=== PATIENT | female | born 1990 | race Caucasian/White ===

== ENCOUNTER 2019-02-01 09:36 | Outpatient (REF) | payer BC, SELFPAY ==
--- NOTE | 2019-02-01 09:20 | PAPFT_PTH ---
PATIENT: Sara Carreon LOC: [facility] U#:[id number] AGE/SX: 28/F ROOM: RE02/01/[address]: Pietro Khan MD : 1990 BED: DIS: 02/01/2019 SPEC #: [id number] RECD: 02/01/19 13:01 STATUS: ELIAN REPatrizia #: [id number] SEGUNDO: 02/01/19 09:[address]: Pietro Khan DEPT: [facility] Cytology RECD BY: Niki Garcia ENTERED: 02/01/19 13:02 SP TYPE: PAPFT JUNE DR: Liset Ramirez, DO Tissues: 1 - CX/ENDOCX FOR PAP SMEARS Procedures: PAP THIN PREP/UVM Screening HPV DNA PROBE Comments: [id number]
== END 2019-02-01 09:56 ==
LOC: LBN 09:36
PROVIDERS: PCP Student in an Organized Health Care Education/Training Program; Visit Provider Obstetrics & Gynecology
DX: Z12.4 Encounter for screening for malignant neoplasm of cervix (principal); Z11.51 Encounter for screening for human papillomavirus (HPV)
CPT/HCPCS: 88142; 87624

== ENCOUNTER 2019-03-08 13:29 | Outpatient (REF) | payer BC, SELFPAY ==
--- NOTE | 2019-03-08 11:40 | ENDO_PTH ---
PATIENT: Sara Carreon LOC: [facility] U#:[id number] AGE/SX: 28/F ROOM: RE03/08/[address]: Pietro Khan MD : 1990 BED: DIS: 03/08/2019 SPEC #: [id number] RECD: 03/08/19 18:10 STATUS: ELIAN REQ #: [id number] SEGUNDO: 03/08/19 11:[address]: Pietro Khan DEPT: Surgical Specimen RECD BY: Niki Garcia ENTERED: 03/08/19 18:11 SP TYPE: Endo OTHR DR: Liset Ramirez DO Tissues: 1 - ENDOCERVICAL BX/CURRETTE 2 - CERVICAL BIOPSY Procedures: GROSS AND MICRO LEVEL 4 Comments: [id number]
== END 2019-03-08 13:49 ==
LOC: LBN 13:29
PROVIDERS: PCP Student in an Organized Health Care Education/Training Program; Visit Provider Obstetrics & Gynecology
DX: N72 Inflammatory disease of cervix uteri (principal); N88.8 Other specified noninflammatory disorders of cervix uteri; R87.612 Low grade squamous intraepithelial lesion on cytologic smear of cervix (LGSIL); R87.810 Cervical high risk human papillomavirus (HPV) DNA test positive
CPT/HCPCS: 88305

== ENCOUNTER 2020-03-06 04:15 | Outpatient (CLI) | payer OTHER, SELFPAY ==
--- NOTE | 2020-03-06 06:15 | DI.RAD_ITS ---
EXAM: XR SCOLIOSIS T-L SPINE CLINICAL HISTORY: Evaluate curvature;THORACIC PAIN WITH FLEXION,T1,2,3 CURVATURE, ASYMMETRY,. TECHNIQUE: 2D digital imaging was performed. COMPARISON: No exams were available for comparison FINDINGS: BONES: No acute fracture is present. No bony destructive lesion is seen. Alignment of the thoracolumb ar spine is within normal limits. No significant curvature of the spine is noted. The vertebral bod ies have a normal appearance. JOINTS: No dislocation present. The disc spaces are well maintained. SOFT TISSUE: Normal. IMPRESSION: Unremarkable radiographs of the thoracolumbar spine. DATA REPOSITORY: RADIATION DOSE DELIVERED:
--- NOTE | 2020-03-06 06:15 | DI.RAD_ITS ---
EXAM: XR CERVICAL SP COMP W FLEX/EXT CLINICAL HISTORY: Eval prominence @ C6-C7, r/o bony path,NECK PAIN,M54.2. TECHNIQUE: 2D digital imaging was performed. COMPARISON: No exams were available for comparison FINDINGS: BONES: No fracture or destructive lesion. Vertebral bodies are unremarkable. DISKS: Intervertebral disc spaces are maintained. ALIGNMENT: There is straightening of the normal cervical lordosis which may be due to patient positio sole or muscle spasm. No subluxation is seen with flexion or extension. The odontoid and atlantoaxi al articulations are normal. No neural foraminal encroachment is seen. SOFT TISSUE: Normal. The lung apices are clear. IMPRESSION: Unremarkable radiographs of the cervical spine. DATA REPOSITORY: RADIATION DOSE DELIVERED:
== END 2020-03-06 04:35 ==
PROVIDERS: PCP Student in an Organized Health Care Education/Training Program; Visit Provider Student in an Organized Health Care Education/Training Program
DX: M54.2 Cervicalgia (principal); M54.9 Dorsalgia, unspecified
CPT/HCPCS: 72081; 72052

== ENCOUNTER 2020-06-04 01:18 | Outpatient (CLI) | payer OTHER, SELFPAY ==
--- NOTE | 2020-06-04 09:33 | DI.MRI_ITS ---
EXAM: MR BRAIN WO CLINICAL HISTORY: paresthesias,r20.2, ? multiple sclerosis TECHNIQUE: Multiplanar multisequence MRI of the brain was performed. Both noninfused and contrast i nfused sequences were performed. IV Contrast injected was cc Dotarem. COMPARISON: No exams were available for comparison FINDINGS: CEREBRAL PARENCHYMA: No evidence of intracranial hemorrhage, mass effect nor shift of midline structu re. No extraaxial fluid collections. Ventricles are not enlarged nor shifted. There is no evidence of ce rebellar tonsillar ectopia. There is no significant focal signal abnormality in the cerebellar hemispheres nor within the luz marina, m idbrain, and thalami. In the left periventricular white matter there is a solitary faint 5 x 4 millimeter focus of some mil d signal abnormality seen on T2 and FLAIR imaging and another similar finding is seen in the right pe riventricular white matter. Both of these are not associated with abnormal signal in the fusion imag ing. There is no associated hemorrhage or surrounding vasogenic edema. PITUITARY GLAND: No mass nor parasellar abnormality. No obvious abnormality in the cavernous sinuses. FLOW VOIDS: The expected flow void are noted. No evidence of obvious aneurysm nor obvious vascular ma lformation. PARANASAL SINUSES: The visualized paranasal sinuses appear unremarkable. ORBITS: No obvious abnormal findings. IMPRESSION: 1. Very subtle bilateral periventricular white matter findings as described above. Cannot exclude po ssibility that these may represent small plaques, given the history here, this despite the fact that there is no abnormal high signal at these levels on diffusion imaging. 2. Recommend follow-up MRI scan in a few months time. Earlier if clinically indicated. DATA REPOSITORY:
== END 2020-06-04 01:19 ==
LOC: DI 01:19
PROVIDERS: PCP Student in an Organized Health Care Education/Training Program; Visit Provider Psychiatry & Neurology Neurology
DX: R20.2 Paresthesia of skin (principal); R90.82 White matter disease, unspecified
CPT/HCPCS: 70551

== ENCOUNTER 2020-08-07 02:13 | Outpatient (CLI) | payer OTHER, SELFPAY ==
[2020-08-07 16:45] LABS: Anion Gap 9.7 mmol/L (3-11); BUN 18 mg/dL (7-18); CO2 25.3 mmol/L (21.0-32.0); CREATININE 0.8 mg/dL (0.55-1.02); Calcium 9.3 mg/dL (8.5-10.1); Chloride 106 mmol/L (98-107); Glucose 86 mg/dL (74-106); Potassium 3.9 mmol/L (3.5-5.1); Sodium 141 mmol/L (136-145)
== END 2020-08-07 02:14 | disposition home or self-care (01) ==
LOC: LBO 02:13
PROVIDERS: PCP Student in an Organized Health Care Education/Training Program; Visit Provider Student in an Organized Health Care Education/Training Program
DX: R51.9 Headache, unspecified (principal); E55.9 Vitamin D deficiency, unspecified; R93.7 Abnormal findings on diagnostic imaging of other parts of musculoskeletal system; R20.2 Paresthesia of skin; R10.13 Epigastric pain; R79.89 Other specified abnormal findings of blood chemistry; R20.0 Anesthesia of skin; Z86.39 Personal history of other endocrine, nutritional and metabolic disease
CPT/HCPCS: 36415; 80048; 82306; 83735

== ENCOUNTER 2020-08-10 10:08 | Outpatient (CLI) | payer OTHER, SELFPAY ==
[2020-08-11 12:48] LABS: COVID-19 RT-PCR UVMMC Result Negative (Negative)
== END 2020-08-10 10:09 | disposition home or self-care (01) ==
LOC: LBO 10:08
PROVIDERS: PCP Student in an Organized Health Care Education/Training Program; Visit Provider Student in an Organized Health Care Education/Training Program
DX: Z20.822 Contact with and (suspected) exposure to COVID-19 (principal); R19.7 Diarrhea, unspecified
CPT/HCPCS: U0003

== ENCOUNTER → 2020-12-08 03:38 | Outpatient (CLI) | payer OTHER, SELFPAY ==
--- NOTE | 2020-12-08 09:00 | DI.MRI_ITS ---
Exam(s) MR BRAIN WO EXAM: MR BRAIN WO CLINICAL HISTORY: Eval for demyelination (FU to 05/2020 MRI); R55 SYNCOPE COLLAPSE R20.0 R20.2 TECHNIQUE: Multiplanar multisequence MRI of the brain was performed. COMPARISON: MR MR BRAIN WO from 06/04/2020 FINDINGS: VENTRICLES AND EXTRA AXIAL SPACES: Normal in size and morphology for the patient's age. MIDLINE SHIFT: None. CEREBRAL PARENCHYMA: No focus of restricted diffusion to suggest acute infarct. There are 2 nearly s ymmetric small high signal foci on T2 FLAIR images in the periventricular white matter adjacent to t he lateral ventricles. This is unchanged from the previous exam. There is no associated hemorrhage or restricted diffusion. HEMORRHAGE: None. BRAINSTEM/CEREBELLUM: Normal. VISUALIZED PARANASAL SINUSES/MASTOIDS:Clear. [place]KA[place] OF HORN: Normal flow void. PITUITARY GLAND: Unremarkable. IMPRESSION: Stable high signal foci in the periventricular white matter. No new abnormalities. DATA REPOSITORY:
== END ==
PROVIDERS: PCP Student in an Organized Health Care Education/Training Program; Visit Provider Student in an Organized Health Care Education/Training Program
DX: R20.0 Anesthesia of skin (principal); R20.2 Paresthesia of skin; R55 Syncope and collapse; Z82.3 Family history of stroke; R90.82 White matter disease, unspecified
CPT/HCPCS: 70551

== ENCOUNTER 2021-06-03 16:45 | Outpatient (REF) | payer OTHER, SELFPAY ==
[2021-06-03 19:04] LABS: MCH 30.9 pg (27.0-33.0); MCHC 33.3 % (32.0-36.0); MCV 92.6 fL (80-95); MPV 10.1 fL (8.0-11.0); Platelet Count 298 10^3/uL (130-400); RBC 4.21 10^6/uL (3.93-5.22); RDW 11.7 % (11.7-14.6); RDW-SD 39.7 fL; WBC 11.69 10^3/uL (4.4-10.8)
[2021-06-03 19:46] LABS: Vitamin D 25 Total 22.3 ng/mL (30-100)
[2021-06-03 19:48] LABS: Anion Gap 10.9 mmol/L (3-11); BUN 17 mg/dL (7-18); CO2 26.1 mmol/L (21.0-32.0); CREATININE 0.7 mg/dL (0.55-1.02); Calcium 9.4 mg/dL (8.5-10.1); Chloride 103 mmol/L (98-107); Glucose 84 mg/dL (74-106); Potassium 3.7 mmol/L (3.5-5.1); Sodium 140 mmol/L (136-145); Vitamin B12 540 pg/mL (193-986)
[2021-06-03 20:17] LABS: Folate > 20.0 ng/mL (8.6-20.0)
== END 2021-06-03 16:46 | disposition home or self-care (01) ==
LOC: LBN 16:45
PROVIDERS: PCP Student in an Organized Health Care Education/Training Program; Visit Provider Student in an Organized Health Care Education/Training Program
DX: R20.0 Anesthesia of skin (principal); R20.2 Paresthesia of skin; R53.83 Other fatigue; E46 Unspecified protein-calorie malnutrition; E86.0 Dehydration; G43.009 Migraine without aura, not intractable, without status migrainosus; R79.89 Other specified abnormal findings of blood chemistry; R51.9 Headache, unspecified
CPT/HCPCS: 80048; 82306; 85027; 82607; 82746

== ENCOUNTER 2021-06-28 16:15 | Outpatient (REF) | payer OTHER, SELFPAY ==
--- NOTE | 2021-06-28 15:45 | PAPFT_PTH ---
PATIENT: Sara Carreon LOC: [facility] U#:[id number] AGE/SX: 30/F ROOM: RE06/28/[address]: Trini Green NP : 1990 BED: DIS: 06/28/2021 SPEC #: [id number] RECD: 06/28/21 18:17 STATUS: ELIAN REQ #: [id number] SEGUNDO: 06/28/21 15:[address]: Trini Green NP DEPT: [facility] Cytology RECD BY: Niki Garcia ENTERED: 06/28/21 18:17 SP TYPE: PAPFT OTHR DR: Liset Ramirez, DO Tissues: 1 - CX/ENDOCX FOR PAP SMEARS Procedures: PAP THIN PREP/UVM Screening HPV DNA PROBE Comments: [id number]
== END 2021-06-28 16:16 | disposition home or self-care (01) ==
LOC: LBN 16:15
PROVIDERS: PCP Student in an Organized Health Care Education/Training Program; Visit Provider Nurse Practitioner Women's Health
DX: Z12.4 Encounter for screening for malignant neoplasm of cervix (principal); Z11.51 Encounter for screening for human papillomavirus (HPV)
CPT/HCPCS: 88142; 87624

== ENCOUNTER 2021-08-12 02:14 | Outpatient (CLI) | payer OTHER, SELFPAY ==
--- NOTE | 2021-08-12 07:00 | DI.US_ITS ---
Exam(s) US BREAST RT COMPLETE MG MAMMO DIAGNOSTIC BI EXAM: MG MAMMO DIAGNOSTIC BI CLINICAL HISTORY: black/green nipple discharge of r breast,N64.52 TECHNIQUE: Mammograms were interpreted according to the usual protocol including computer analysis w [employer]-Bio CAD system, tomosynthesis and C-view imaging. COMPARISON: FINDINGS: Bilateral mammogram and ultrasound of the right breast are interpreted in conjunction. No prior imag es available for comparison, this examination is a baseline study. The breasts are heterogeneously dense. No dominant mass or clumped microcalcification identified in either breast. Breast ultrasound was also performed on the right breast due to reported history of n ipple discharge. Breast ultrasound of the whole breast is unremarkable with no suspicious finding id entified. A 3 millimeter cyst is noted in the 12 o'clock position 2 cm from the nipple which is a si mple cyst. A group of micro cysts is also seen in the 11 o'clock position about 3 cm from the nipple . IMPRESSION: No specific evidence of malignancy at this time. Routine screening examinations recommended beginnin g age 40 unless there is breast symptomatology in the intervening period. BI-RADS Category 1 - Negative Breast Density - Category C - Heterogeneously dense
--- NOTE | 2021-08-12 10:02 | DI.MAMMO_ITS ---
Exam(s) US BREAST RT COMPLETE MG MAMMO DIAGNOSTIC BI EXAM: MG MAMMO DIAGNOSTIC BI CLINICAL HISTORY: black/green nipple discharge of r breast,N64.52 TECHNIQUE: Mammograms were interpreted according to the usual protocol including computer analysis w [employer] CAD system, tomosynthesis and C-view imaging. COMPARISON: FINDINGS: Bilateral mammogram and ultrasound of the right breast are interpreted in conjunction. No prior imag es available for comparison, this examination is a baseline study. The breasts are heterogeneously dense. No dominant mass or clumped microcalcification identified in either breast. Breast ultrasound was also performed on the right breast due to reported history of n ipple discharge. Breast ultrasound of the whole breast is unremarkable with no suspicious finding id entified. A 3 millimeter cyst is noted in the 12 o'clock position 2 cm from the nipple which is a si mple cyst. A group of micro cysts is also seen in the 11 o'clock position about 3 cm from the nipple . IMPRESSION: No specific evidence of malignancy at this time. Routine screening examinations recommended beginnin g age 40 unless there is breast symptomatology in the intervening period. BI-RADS Category 1 - Negative Breast Density - Category C - Heterogeneously dense
== END 2021-08-12 02:34 ==
LOC: DI 02:15
PROVIDERS: PCP Student in an Organized Health Care Education/Training Program; Visit Provider Nurse Practitioner Women's Health
DX: N64.52 Nipple discharge (principal); N60.11 Diffuse cystic mastopathy of right breast
CPT/HCPCS: 76642; 77062; 77066; G0279

== ENCOUNTER 2022-04-22 02:31 | Outpatient (CLI) | payer OTHER, SELFPAY ==
[2022-04-22 14:28] LABS: Absolute Basophil Count 0.06 10^3/uL (0.0-0.2); Absolute Eosinophil Count 0.19 10^3/uL (0.0-0.7); Absolute Monocyte Count 0.89 10^3/uL (0.1-0.8); Basophils % 0.5; Eosinophils % 1.6; HCT 36.8 % (36.0-46.0); HGB 12.4 g/dL (11.2-15.7); Immature Grans % 0.8; Lymphocytes % 24.7; MCH 30.9 pg (27.0-33.0); MCHC 33.7 % (32.0-36.0); MCV 92 fL (80-95); MPV 9.6 fL (8.0-11.0); Monocytes % 7.3; Neutrophils % 65.1; Platelet Count 260 10^3/uL (130-400); RBC 4.01 10^6/uL (3.93-5.22); RDW 11.7 % (11.7-14.6); RDW-SD 39.4 fL; WBC 12.13 10^3/uL (4.4-10.8)
[2022-04-22 15:17] LABS: HCG Quant, Pregnancy 53145 mIU/mL (1-3)
[2022-04-22 15:39] LABS: Vitamin D 25 Total 18.1 ng/mL (30-100)
[2022-04-22 17:25] LABS: *AMPHETAMINES SCREEN URINE Negative (Negative); *BARBITURATES SCREEN URINE Negative (Negative); *BENZODIAZEPINES SCREEN URINE Negative (Negative); Cannabinoids THC Negative (Negative); Cocaine Screen,Urine Negative (Negative); METHADONE URINE SCREEN Negative (Negative); OPIATES URINE SCREEN Negative (Negative)
[2022-04-22 17:26] LABS: Tricyclic Antidepressants Negative (Negative)
[2022-04-23 15:24] LABS: Syphilis IgG w/Reflex Nonreactive (Nonreactive)
[2022-04-24 13:21] LABS: HIV-1/2 Ag & Ab Screen Negative (Negative)
[2022-04-25 09:11] LABS: Hepatitis B Surface Ag Negative (Negative)
[2022-04-25 09:24] LABS: Hepatitis C Ab w Rflx HCV PCR Negative (Negative)
[2022-04-25 11:40] LABS: Varicella IgG Antibody Positive (See Note)
[2022-04-25 11:42] LABS: Rubella IgG Ab (UVM) Positive (See Note)
[2022-04-30 16:21] LABS: Buprenorphine Negative ng/mL (Cutoff: 5.0); Norbuprenorphine Negative ng/mL (Cutoff: 2.5)
== END 2022-04-22 02:32 | disposition home or self-care (01) ==
LOC: LBO 02:31
PROVIDERS: PCP Student in an Organized Health Care Education/Training Program; Visit Provider Advanced Practice Midwife
DX: Z34.91 Encounter for supervision of normal pregnancy, unspecified, first trimester (principal); E55.9 Vitamin D deficiency, unspecified; Z3A.12 12 weeks gestation of pregnancy
CPT/HCPCS: 36415; 80307; 80348; 82306; 86787; 86803; 86850; 86900; 86901; 87340; 87389; 84702; 85025; 86762; 86780; 87086

== ENCOUNTER 2022-05-20 01:25 | Outpatient (CLI) | payer OTHER, SELFPAY ==
[2022-05-20 16:33] LABS: Panorama Kit Sent via Fed Ex
[2022-05-24 16:21] LABS: AFP 55.5 ng/mL; Calculated age at EDD 34 years; Cigarette smoking status non-Smoker; GA used in risk estimate Scan estimate; IVF Pregnancy No; Initial or repeat testing Initial testing; Insulin dependent diabetes No; Maternal Weight 157 lbs; Number of Fetuses 1; Prev Pregnancy w/NTD No; RECOMMENDED FOLLOW UP None.; Results Summary Normal risk
== END 2022-05-20 01:26 | disposition home or self-care (01) ==
LOC: LBO 01:25
PROVIDERS: PCP Student in an Organized Health Care Education/Training Program; Visit Provider Advanced Practice Midwife
DX: Z34.92 Encounter for supervision of normal pregnancy, unspecified, second trimester (principal); Z36.89 Encounter for other specified antenatal screening; Z3A.16 16 weeks gestation of pregnancy
CPT/HCPCS: 36415; 82105

== ENCOUNTER 2022-05-20 17:38 | Outpatient (REF) | payer OTHER, SELFPAY ==
[2022-05-23 12:28] LABS: Chlamydia Result Negative (Negative); GC Result Negative (Negative)
== END 2022-05-20 17:39 | disposition home or self-care (01) ==
LOC: LBN 17:38
PROVIDERS: PCP Student in an Organized Health Care Education/Training Program; Visit Provider Advanced Practice Midwife
DX: Z34.92 Encounter for supervision of normal pregnancy, unspecified, second trimester (principal); Z3A.16 16 weeks gestation of pregnancy
CPT/HCPCS: 87491; 87591

== ENCOUNTER 2022-06-22 15:08 | Outpatient (CLI) | payer OTHER, SELFPAY ==
[2022-06-22 15:20] LABS: FREE T4 0.97 ng/dL (0.76-1.46); TSH 0.72 uIU/mL (0.36-3.74)
== END 2022-06-22 15:09 | disposition home or self-care (01) ==
LOC: LBO 15:20
PROVIDERS: PCP Student in an Organized Health Care Education/Training Program; Visit Provider Advanced Practice Midwife
DX: R00.2 Palpitations (principal); R07.89 Other chest pain
CPT/HCPCS: 36415; 84439; 84443

== ENCOUNTER 2022-08-17 02:31 | Outpatient (CLI) | payer OTHER, SELFPAY ==
[2022-08-17 15:11] LABS: HCT 32.2 % (36.0-46.0); HGB 10.9 g/dL (11.2-15.7); MCH 30.7 pg (27.0-33.0); MCHC 33.9 % (32.0-36.0); MCV 91 fL (80-95); Platelet Count 230 10^3/uL (130-400); RBC 3.55 10^6/uL (3.93-5.22); RDW-SD 42.7 fL; WBC 15.88 10^3/uL (4.4-10.8)
[2022-08-17 15:19] LABS: Glucose,1 Hr (Glucola) 192 mg/dL (80-140)
== END 2022-08-17 02:32 | disposition home or self-care (01) ==
LOC: LBO 02:31
PROVIDERS: PCP Student in an Organized Health Care Education/Training Program; Visit Provider Advanced Practice Midwife
DX: Z34.93 Encounter for supervision of normal pregnancy, unspecified, third trimester (principal); Z3A.29 29 weeks gestation of pregnancy
CPT/HCPCS: 36415; 82950; 85027

== ENCOUNTER 2022-08-30 02:46 | Outpatient (CLI) | payer OTHER, SELFPAY ==
[2022-08-30 10:37] LABS: Glucose 1 Hour 193 mg/dL
[2022-08-30 12:16] LABS: Glucose 3 Hour 157 mg/dL
== END 2022-08-30 02:47 | disposition home or self-care (01) ==
LOC: LBO 02:46
PROVIDERS: PCP Student in an Organized Health Care Education/Training Program; Visit Provider Advanced Practice Midwife
DX: Z34.93 Encounter for supervision of normal pregnancy, unspecified, third trimester (principal); Z3A.31 31 weeks gestation of pregnancy
CPT/HCPCS: 36415; 82951

== ENCOUNTER 2022-09-13 10:47 | Outpatient (CLI) | payer OTHER, SELFPAY ==
--- NOTE | 2022-09-13 10:00 | NS.NUTBLAN_ITS ---
Met with Natacha at [facility]. ZITA 11/01/22 and diagnosed with GDM but unable to prick her finger. Reviewed Dexcom 7 CGM option- she is agreeable however her current phone is not compatible. Has another phone at home. Took Dexcom G7 sample home with her. Left message 09/14 and 09/15 to see if she had any questions. Did not call back. Will be to [facility] next week. Will be able to meet with her then as well.
== END 2022-09-13 10:48 | disposition home or self-care (01) ==
LOC: DS 09-15 10:54
PROVIDERS: PCP Student in an Organized Health Care Education/Training Program; Visit Provider Dietitian, Registered
DX: O24.410 Gestational diabetes mellitus in pregnancy, diet controlled (principal); Z3A.30 30 weeks gestation of pregnancy; Z71.3 Dietary counseling and surveillance
CPT/HCPCS: 97802

== ENCOUNTER 2022-10-03 02:55 | Outpatient (CLI) | payer OTHER, SELFPAY ==
--- NOTE | 2022-10-03 06:30 | DI.US_ITS ---
Exam(s) US OB MINE WEIGHT EXAM: US OB MINE WEIGHT CLINICAL HISTORY: 36 wk growth, gestational diabetes, 024.419. TECHNIQUE: Transabdominal obstetrical ultrasound performed. COMPARISON: US US OB 2-3 TRIMESTER from 06/22/2022 FINDINGS:: Number of fetuses: One. position: Vertex. Placental location: Anterior peer no evidence of previa. BIOMETRIC DATA: BPD: 87mm = 35+ 0 weeks HC: 312mm = 35+ 0 weeks AC: 306mm = 34+4 weeks FL: 67 mm = 34+2 weeks EFW: 2464 Gms = 16% Composite Age: 34+5 weeks EDC: 09 November 2022 Heart Rate: 152BPM Amniotic fluid index: 20.7 cm. Amount of fluid is visually within normal limits. IMPRESSION: size measuring slightly below the normal range. weight low normal range.. DATA REPOSITORY:
== END 2022-10-03 03:15 ==
LOC: DI 02:55
PROVIDERS: PCP Student in an Organized Health Care Education/Training Program; Visit Provider Advanced Practice Midwife
DX: O24.410 Gestational diabetes mellitus in pregnancy, diet controlled (principal)
CPT/HCPCS: 76816

== ENCOUNTER 2022-10-10 16:27 | Outpatient (REF) | payer OTHER, SELFPAY ==
[2022-10-10 20:26] LABS: *AMPHETAMINES SCREEN URINE Negative (Negative); *BARBITURATES SCREEN URINE Negative (Negative); *BENZODIAZEPINES SCREEN URINE Negative (Negative); Cannabinoids THC Negative (Negative); Cocaine Screen,Urine Negative (Negative); METHADONE URINE SCREEN Negative (Negative); OPIATES URINE SCREEN Negative (Negative)
[2022-10-10 20:27] LABS: Tricyclic Antidepressants Negative (Negative)
[2022-10-17 04:54] LABS: Buprenorphine Negative ng/mL (Cutoff: 5.0)
== END 2022-10-10 16:28 | disposition home or self-care (01) ==
LOC: LBN 16:27
PROVIDERS: PCP Student in an Organized Health Care Education/Training Program; Visit Provider Advanced Practice Midwife
DX: Z34.90 Encounter for supervision of normal pregnancy, unspecified, unspecified trimester (principal)
CPT/HCPCS: 80307; 80348; 87081

== ENCOUNTER 2022-10-24 16:12 | Outpatient (CLI) | payer OTHER, SELFPAY ==
[2022-10-24 16:28] VITALS: BP 117/82; PULSE 87; TEMP 36.5
--- NOTE | 2022-10-24 17:19 | W.OBNST ---
Date of service: 10/24/22 Time of Service: 17:10 NST Evaluation Reason for NST Reasons for Nonstress Test: GDM-DIET CONTROLLED Gestational Age Gestational Age in Weeks and Days: 38 Weeks and 6Days Test and Monitor Explained Test/Monitor Explained: Test Explained, Monitor Explained and Patient Verbalized Understanding Vital Signs Blood Pressure: 117/82 Pulse: 87 Temperature: 97.7 F NST Information Date on Monitor: 10/24/22 Time on Monitor: 16:19 Date off Monitor: 10/24/22 Time off Monitor: 16:50 Total Time on Monitor: 31 NST Interventions: None and PO Hydration Contraction Frequency: 4-5 NST Evaluation Patient States Movement: Present FHR Baseline: 130 Variability: Moderate 6-25 bpm Accelerations: 15x15 Decelerations: None NST Results: Reactive Note Ultrasound Done: N/A. NST Note Note: NST done due to GDM with questionable BG control as CGM has been recording spikes in BG's but overall good BG level. Patient admits that CGM may not be recording accurately as she did a BG at work that was 40 points different than what CGM was recording. Due to this and that she is 39 week this week, induction of labor was suggested and she agrees to IOL on Monday. VE done FT/80/-2 slightly posterior. She will call on Monday morning to verify that [facility] can accept her for induction. I encouraged more strict control of diet between now and Monday and she verbalizes understanding. NST today is reactive and reassuring. ARIK NST Reviewed and Verified by: Antionette Yepez
[2022-10-24 17:28] VITALS: BP 117/82; PULSE 87; TEMP 36.5
== END 2022-10-24 17:16 | disposition home or self-care (01) ==
LOC: BCD 16:14 → OBS 16:27
PROVIDERS: PCP Student in an Organized Health Care Education/Training Program; Visit Provider Advanced Practice Midwife
DX: O24.410 Gestational diabetes mellitus in pregnancy, diet controlled (principal); Z3A.38 38 weeks gestation of pregnancy
CPT/HCPCS: 59025

== ENCOUNTER 2022-10-29 09:07 | Inpatient (IN) | payer OTHER, SELFPAY ==
[2022-10-29] VITALS (48 sets, daily range): BP systolic 115–128; BP diastolic 69–81; PULSE 0–107; RESP 16–18; TEMP 36.4–36.6; O2SAT 99
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
[2022-10-29 11:25] LABS: HCT 35.6 % (36.0-46.0); HGB 12.4 g/dL (11.2-15.7); MCH 31.3 pg (27.0-33.0); MCHC 34.8 % (32.0-36.0); MCV 90 fL (80-95); MPV 10.1 fL (8.0-11.0); Platelet Count 225 10^3/uL (130-400); RBC 3.96 10^6/uL (3.93-5.22); RDW 13.6 % (11.7-14.6); RDW-SD 44.9 fL; WBC 11.72 10^3/uL (4.4-10.8)
[2022-10-29 11:39] LABS: Hemoglobin A1C 5.1 % (<5.7)
[2022-10-29 11:40] LABS: ALT 14 U/L (14-59); AST 14 U/L (15-37); Albumin 2.4 g/dL (3.4-5.0); Alkaline Phosphatase 120 U/L (46-116); BUN 14 mg/dL (7-18); Bilirubin, Total 0.3 mg/dL (0.2-1.0); CREATININE 0.6 mg/dL (0.55-1.02); Calcium 8.8 mg/dL (8.5-10.1); Chloride 103 mmol/L (98-107); Estimated GFR 121.47 (mL/min/1.73m2); Glucose 76 mg/dL (74-106); Potassium 3.9 mmol/L (3.5-5.1); Sodium 134 mmol/L (136-145); Total Protein 6.1 g/dL (6.4-8.2)
--- NOTE | 2022-10-29 11:44 | W.OBNST ---
Date of service: 10/29/22 Time of Service: 11:00 NST Evaluation Reason for NST Reasons for Nonstress Test: GDM-DIET CONTROLLED Gestational Age Gestational Age in Weeks and Days: 39 Weeks and 4Days Test and Monitor Explained Test/Monitor Explained: Test Explained, Monitor Explained and Patient Verbalized Understanding Vital Signs Blood Pressure: 118/81 Pulse: 107 Temperature: 97.9 F Urine Results Urine Protein: Negative Urine Ketones: Negative Urine Glucose: Negative Urine Blood: Negative NST Information Date on Monitor: 10/29/22 Time on Monitor: 09:15 Date off Monitor: 10/29/22 Time off Monitor: 09:55 Total Time on Monitor: 40 NST Interventions: Notify Provider Contraction Frequency: 4 NST Evaluation Patient States Movement: Present FHR Baseline: 145 Variability: Moderate 6-25 bpm Accelerations: 15x15 Decelerations: None NST Results: Reactive Note Ultrasound Done: N/A. NST Note Note: Natacha came in today for NST due to gestational diabetes. She has been monitoring blood sugar with a CGM an elevated post meal blood sugars have been detected. We discussed IOL today per consultation with Dr. Hayes and she would like to do that today. Admitted for ioL. NST Reviewed and Verified by: Antionette Blake
[2022-10-29] MEDS: Docusate Sodium 100 MG CAP PO (16:27)
--- NOTE | 2022-10-29 21:24 | W.PM.OBNL1 ---
Date of service: 10/29/22 Time of Service: 21:24 Informed Consent Informed Consent: Induction of Labor Pelvic Exam Comments: exam deferred as balloon remains in place. Contractions Monitor Mode: External Contraction Frequency(min): irregular Contraction Duration(sec): 50 Intensity: Mild Fetus A Monitor: External (US) Heart Rate Baseline: 135 Variability: Moderate (6-25 BPM) Categories: Category I FHR Rhythm: Regular Accelerations: 15 X 15 Decelerations: None Amniotic Membrane Status: Intact Assessment and Plan Assessment and plan (1) Encounter for planned induction of labor: Status: Acute Assessment and plan: Will start misoprostol PO for cervical ripening at this time. Anticipate Objective Abnormal lab results 10/29/22 10/29/22 Range/Units 10:55 10:55 WBC 11.72 H (4.4-10.8) 10^3/uL Hct 35.6 L (36.0-46.0) % Sodium 134 L (136-145) mmol/L AST 14 L (15-37) U/L Alkaline Phosphatase 120 H (46-116) U/L Total Protein 6.1 L (6.4-8.2) g/dL Albumin 2.4 L (3.4-5.0) g/dL Temp Pulse Resp BP Pulse Ox 97.5 F L 0 L 16 127/72 99 10/29/22 20:00 10/29/22 21:23 10/29/22 20:00 10/29/22 20:00 10/29/22 13:56 Laboratory Results WBC 11.72 10^3/uL (4.4-10.8) H 10/29/22 10:55 RBC 3.96 10^6/uL (3.93-5.22) 10/29/22 10:55 Hgb 12.4 g/dL (11.2-15.7) 10/29/22 10:55 Hct 35.6 % (36.0-46.0) L 10/29/22 10:55 MCV 90 fL (80-95) 10/29/22 10:55 MCH 31.3 pg (27.0-33.0) 10/29/22 10:55 MCHC 34.8 % (32.0-36.0) 10/29/22 10:55 RDW 13.6 % (11.7-14.6) 10/29/22 10:55 Plt Count 225 10^3/uL (130-400) 10/29/22 10:55 MPV 10.1 fL (8.0-11.0) 10/29/22 10:55 Sodium 134 mmol/L (136-145) L 10/29/22 10:55 Potassium 3.9 mmol/L (3.5-5.1) 10/29/22 10:55 Chloride 103 mmol/L (98-107) 10/29/22 10:55 Carbon Dioxide 21.0 mmol/L (21.0-32.0) 10/29/22 10:55 Anion Gap 10.0 mmol/L (3-11) 10/29/22 10:55 BUN 14 mg/dL (7-18) 10/29/22 10:55 Creatinine 0.6 mg/dL (0.55-1.02) 10/29/22 10:55 Est GFR (CKD-EPI 2020) 121.47 (mL/min/1.73m2) 10/29/22 10:55 Glucose 76 mg/dL (74-106) 10/29/22 10:55 Hemoglobin A1c 5.1 % (<5.7) 10/29/22 10:55 Calcium 8.8 mg/dL (8.5-10.1) 10/29/22 10:55 Total Bilirubin 0.3 mg/dL (0.2-1.0) 10/29/22 10:55 AST 14 U/L (15-37) L 10/29/22 10:55 ALT 14 U/L (14-59) 10/29/22 10:55 Alkaline Phosphatase 120 U/L (46-116) H 10/29/22 10:55 Total Protein 6.1 g/dL (6.4-8.2) L 10/29/22 10:55 Albumin 2.4 g/dL (3.4-5.0) L 10/29/22 10:55 Patient ABO/Rh A Positive 10/29/22 10:55 Antibody Screen NEGATIVE 10/29/22 10:55 Subjective Interval history since last seen: Natacha is experiencing mild contractions. She was offered misoprostol for cervical ripening and she wishes to proceed with that at this time. Results Hemoglobin/Hematocrit: Hgb 12.4 g/dL (11.2-15.7) 10/29/22 10:55 Hct 35.6 % (36.0-46.0) L 10/29/22 10:55 Abnormal Lab Findings: Abnormal Labs 10/29/22 10/29/22 10:55 10:55 WBC 11.72 H Hct 35.6 L Sodium 134 L AST 14 L Alkaline Phosphatase 120 H Total Protein 6.1 L Albumin 2.4 L
[2022-10-29] MEDS: miSOPROStol 25 MCG TAB PO (21:47)
[2022-10-30] VITALS (322 sets, daily range): BP systolic 100–158; BP diastolic 59–84; PULSE 0–134; RESP 16; TEMP 36.4–36.8; O2SAT 98–100; BMI 32.2
[2022-10-30] MEDS: miSOPROStol 25 MCG TAB PO ×2 (02:01→06:02)
--- NOTE | 2022-10-30 07:06 | W.PM.OBNL1 ---
Date of service: 10/30/22 Time of Service: 07:06 Informed Consent Informed Consent: Induction of Labor Pelvic Exam Comments: Exam deferred Contractions Monitor Mode: External Contraction Frequency(min): every 3 min Contraction Duration(sec): 40-50 Intensity: Mild Fetus A Monitor: External (US) Heart Rate Baseline: 140 Variability: Moderate (6-25 BPM) Categories: Category I FHR Rhythm: Regular Accelerations: 15 X 15 Decelerations: None Assessment and Plan Assessment and plan (1) Encounter for planned induction of labor: Status: Acute Assessment and plan: Will increase misoprostol dose to 50 mcg PO every 4 hours. Natacha is planning epidural for pain. Ambulation and /or shower was encouraged. Care will be assumed by Maria De Jesus Ramirez CNM after 0800. (2) Gestational diabetes: Status: Acute Assessment and plan: Natacha has ordered breakfast and will assess blood sugar by CGM monitor one hour after breakfast Objective Abnormal lab results 10/29/22 10/29/22 Range/Units 10:55 10:55 WBC 11.72 H (4.4-10.8) 10^3/uL Hct 35.6 L (36.0-46.0) % Sodium 134 L (136-145) mmol/L AST 14 L (15-37) U/L Alkaline Phosphatase 120 H (46-116) U/L Total Protein 6.1 L (6.4-8.2) g/dL Albumin 2.4 L (3.4-5.0) g/dL Temp Pulse Resp BP Pulse Ox 97.7 F 74 16 105/67 99 10/30/22 06:03 10/30/22 07:03 10/29/22 20:00 10/30/22 06:03 10/29/22 13:56 Laboratory Results WBC 11.72 10^3/uL (4.4-10.8) H 10/29/22 10:55 RBC 3.96 10^6/uL (3.93-5.22) 10/29/22 10:55 Hgb 12.4 g/dL (11.2-15.7) 10/29/22 10:55 Hct 35.6 % (36.0-46.0) L 10/29/22 10:55 MCV 90 fL (80-95) 10/29/22 10:55 MCH 31.3 pg (27.0-33.0) 10/29/22 10:55 MCHC 34.8 % (32.0-36.0) 10/29/22 10:55 RDW 13.6 % (11.7-14.6) 10/29/22 10:55 Plt Count 225 10^3/uL (130-400) 10/29/22 10:55 MPV 10.1 fL (8.0-11.0) 10/29/22 10:55 Sodium 134 mmol/L (136-145) L 10/29/22 10:55 Potassium 3.9 mmol/L (3.5-5.1) 10/29/22 10:55 Chloride 103 mmol/L (98-107) 10/29/22 10:55 Carbon Dioxide 21.0 mmol/L (21.0-32.0) 10/29/22 10:55 Anion Gap 10.0 mmol/L (3-11) 10/29/22 10:55 BUN 14 mg/dL (7-18) 10/29/22 10:55 Creatinine 0.6 mg/dL (0.55-1.02) 10/29/22 10:55 Est GFR (CKD-EPI 2020) 121.47 (mL/min/1.73m2) 10/29/22 10:55 Glucose 76 mg/dL (74-106) 10/29/22 10:55 Hemoglobin A1c 5.1 % (<5.7) 10/29/22 10:55 Calcium 8.8 mg/dL (8.5-10.1) 10/29/22 10:55 Total Bilirubin 0.3 mg/dL (0.2-1.0) 10/29/22 10:55 AST 14 U/L (15-37) L 10/29/22 10:55 ALT 14 U/L (14-59) 10/29/22 10:55 Alkaline Phosphatase 120 U/L (46-116) H 10/29/22 10:55 Total Protein 6.1 g/dL (6.4-8.2) L 10/29/22 10:55 Albumin 2.4 g/dL (3.4-5.0) L 10/29/22 10:55 Patient ABO/Rh A Positive 10/29/22 10:55 Antibody Screen NEGATIVE 10/29/22 10:55 Subjective Interval history since last seen: Natacha slept well last night and awoke with menstrual-like cramping. The balloon was removed at 2300 and she has received 3 doses of misoprostol 25 mcg. Natacha is wearing a CGM monitor. Blood sugar readings have been WNL yesterday by CGM readings with Hgb A1C 5.1 and random serum glucose of 74. Fasting blood sugar this morning is 81. Results Hemoglobin/Hematocrit: Hgb 12.4 g/dL (11.2-15.7) 10/29/22 10:55 Hct 35.6 % (36.0-46.0) L 10/29/22 10:55 Abnormal Lab Findings: Abnormal Labs 10/29/22 10/29/22 10:55 10:55 WBC 11.72 H Hct 35.6 L Sodium 134 L AST 14 L Alkaline Phosphatase 120 H Total Protein 6.1 L Albumin 2.4 L
[2022-10-30] MEDS: miSOPROStol 25 MCG TAB 50 MCG PO (10:07)
[2022-10-30] MEDS: Docusate Sodium 100 MG CAP PO (10:09)
--- NOTE | 2022-10-30 10:17 | W.PM.OBNL1 ---
Date of service: 10/30/22 Time of Service: 10:18 Informed Consent Informed Consent: Induction of Labor (via cervical ripening) and Risk,Benefits,Alternatives Discussed Pelvic Exam Comments: pelvic exam deferred Fetus A Monitor: External (US) Heart Rate Baseline: 145 Presentation: Cephalic Variability: Moderate (6-25 BPM) Categories: Category I Accelerations: 15 X 15 Decelerations: None Amniotic Membrane Status: Intact Assessment and Plan Assessment and plan (1) Encounter for planned induction of labor: Status: Acute Assessment and plan: A: Assuming care for 31 yo @ 39+5 wks Not in labor, mild short contractions, pt comfortable IOL for GDM, using CGM for sugar monitoring (declined finger sticks) Diet controlled, euglycemic so far today HD #2, s/p cervical balloon & oral miso 25 mcg x3 Last cvx exam on admission w/Qureshi score=4 (unfavorable) Pelvis adequate for EFW of 2900 gms; GBS negative Category 1 tracing, increased risk for SD (GDM) and PPH (IOL) Noted hx of KAROL P: Continue cervical ripening this morning, increase miso dose to 50 mcg Reassess for cvx change when pt consents & review plan of care options, Dr. Poe available for consultation Pt plans epidural for active labor (2) Gestational diabetes: Status: Acute Assessment and plan: Fasting on CGM 81 today, 1 hr PP after breakfast 113 Admission HgbA1C 5.1 EFW 2900 gms Objective Vital Signs Reviewed: Yes Notable Details: afebrile and normotensive Subjective Interval history since last seen: Slept reasonably well, feeling mild cramps other truong comfortable, watching a movie with partner FOB. Showered this morning, ambulating and ate breakfast without trouble.
--- NOTE | 2022-10-30 14:18 | PGE_ITS ---
Date of service: 10/30/22 Time of Service: 14:18 Informed Consent Informed Consent: Induction of Labor (via cervical ripening) and Risk,Benefits,Alternatives Discussed Pelvic Exam Dilation: 3 Effacement (%): 50 station: -2 Cervix Position: anterior Consistency: firm BISHOPS Score(Cervical Ripeness Score): 6 Contractions Monitor Mode: External Contraction Frequency(min): 5 Contraction Duration(sec): 50 Intensity: Mild Fetus A Monitor: External (US) Heart Rate Baseline: 130 Variability: Moderate (6-25 BPM) Categories: Category I Accelerations: Present Decelerations: None Amniotic Membrane Status: Intact (tense small forebag palpable across cephalic prominence) Assessment and Plan Assessment and plan (1) Encounter for planned induction of labor: Status: Acute Assessment and plan: A: IOL via cervical ripening for GDM Latent phase, category 1 tracing Qureshi score has advanced to 6 Pt offered and accepts anesthesia consult P: Discussed plan of care w/pt and partner: repeat miso vs cervidil vs AROM Pt feels most comfortable with cervidil for further ripening Bluing Oven Tender contacted and 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
[2022-10-30] MEDS: Dinoprostone-CERVICAL 10 MG VSUPP VG (14:38)
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
--- NOTE | 2022-10-30 19:10 | W.PM.OBNL1 ---
Date of service: 10/30/22 Time of Service: 19:11 Informed Consent Informed Consent: Induction of Labor (cervidil inserted at 1430), Regional Anesthesia and Risk,Benefits,Alternatives Discussed Pelvic Exam Comments: pelvic deferred Contractions Monitor Mode: External Contraction Frequency(min): irregular, q3-7 Contraction Duration(sec): 40 Intensity: Mild/Moderate Fetus A Monitor: External (US) Heart Rate Baseline: 150 Variability: Moderate (6-25 BPM) Accelerations: Present Decelerations: Early Amniotic Membrane Status: Intact Assessment and Plan Assessment and plan (1) Encounter for planned induction of labor: Status: Acute Assessment and plan: A: Cervidil placed @ 1430; fell out and found on bed @ 1930 Increase in pt discomfort after fleets enema completed (1809) Category 1 tracing predominant with moderate variability, occasional early, Isolated prolonged decel (x4 min) to 90's 2 hrs ago, resolved with position change, no recurrence P: Start IVF, encourage comfort measures Anesthesia consult done earlier, 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
[2022-10-30] MEDS: Lactated Ringers 1,000 ML 125 ML IV (20:15)
[2022-10-30] MEDS: FentaNYL/ROPIvacaine 2 mcg/ml and 0.1% 200 ML CADD Cassette EP (20:45)
--- NOTE | 2022-10-30 21:02 | W.ANESNEU ---
Epidural/Spinal Catheter Date Performed: 10/30/22 Procedure Start: 08:22 Procedure Stop: 08:28 Requesting Provider: Radha Ramirez Procedure Location: Obstetrics Reason Performed: Labor Epidural Standard Monitors Applied: Blood Pressure and SpO2 Patient Position: Sitting Sedation Given (Indicate Dose Given): No Sedation given Patient Mental Status: Awake Sterility: Hand Hygiene, Surgical Cap, Surgical Mask, Sterile Gloves, Sterile Drape/Sheet and Chlorhexidine Procedure Location: L2-L3 Interspace Epidural Needle: Tuohy 17 Guage Needle Length: 3.5 Inch Needle Approach: Midline Epidural Procedure: 1% Lidocaine to skin and subcutaneous tissue with 25G needle and DAVID to Saline Used Catheter Placed?: Catheter Placed (wire reinforced. ) Test Dose (Indicate Dose Given): 3ml 1.5% Lidocaine with 1:200K Epinephrine Given and Negative Test Dose Loss of Resistance Depth (cm): 5 Catheter depth at skin (cm): 10 Dressing: Sorbaview Dressing Placed and Dressing reinforced with Tape Epidural Provider Bolus (Indicate Dose Given): Total Ropivacaine 0.1% with Fentanyl 2mcg/ml Given from pump. (ml) (10 mL + 5 mL) Dose:: 15 mL Additives (Indicate Dose Given ): None Infusion Medication: Medication Infusion Began Medication Infusion: Ropivacaine 0.1% with Fentanyl 2mcg/ml Maintenance Infusion Rate (ml/hour): 10 PCEA Bolus Dose (ml): 5 Block Level: N/A Paresthesia: None Ultrasound: Used to maggie site Number of Attempts (See previous attempts in note section): 1 Procedure Tolerated: No Complications and Patient tolerated well Procedure Outcome: Successful Procedure Comment:: After 10 mL off of the pump contraction appearing much less intense, still appears uncomfortable, but no long unable to sit still during contractions. Blunt needle used to determine sig decrease in sensation equally. 500 mL bolus given for decels (MAP remained at baseline). Additional 5 mL off of pump given with effect. Performed By: Jamison Cortez
--- NOTE | 2022-10-30 21:06 | W.PM.OBNL1 ---
Date of service: 10/30/22 Time of Service: 21:06 Informed Consent Informed Consent: Regional Anesthesia and Risk,Benefits,Alternatives Discussed Pelvic Exam Dilation: 6 Effacement (%): 100 station: -1 Position: ROP Contractions Monitor Mode: External Contraction Frequency(min): q3-4 Intensity: Moderate/Strong Fetus A Monitor: External (US) Heart Rate Baseline: 135 Variability: Moderate (6-25 BPM) Categories: Category II Accelerations: Present Decelerations: Late, Variable and Prolonged Recurrence: Recurrent Amniotic Membrane Status: Ruptured Rupture Method: Spontaneous Amniotic Fluid: Clear Date of Membrane Rupture: 10/30/22 Time of Membrane Rupture: 18:50 Assessment and Plan Assessment and plan (1) Encounter for planned induction of labor: Status: Acute Assessment and plan: A: Active labor, category 2 tracing Epidural in effect P: Dr. Poe notified and en route Will place scalp lead and change maternal positions as needed Objective Vital Signs Reviewed: Yes Objective Narrative Objective Narrative: Epidural placed, BP is stable and normotensive FHT decel to 80's after pt become somewhat more comfortable Position change LLP with resolution of decel, turned to RLP, IVF bolus begun, 02 per mask started SVE 6/100% SROM confirmed, vtx -1, no prolapse of cord found In RLP FHT returned to baseline, though late decels noted after contractions Dr. Poe notified of pt and change in status, she is en route Subjective Interval history since last seen: Contractions are painful thinks her water broke at 1850 when she heard a pop while sitting on the toilet after giving herself the fleets. Small amounts of clear fluid have trickled out periodically since then.EPidural placed and pain levels are improving.
[2022-10-30] MEDS: Oxytocin/Normal Saline 30 UNIT/500 ML BAG 167 UNITS IV (23:20)
[2022-10-30 23:28] LABS: BE Umbilical Arterial -7 mmol/L; pCO2 Umbilical Arterial 41 mmHg (34-78); pO2 Umbilical Arterial 20 mmHg (6-31)
[2022-10-30 23:30] LABS: BE Umbilical Venous -8 mmol/L; pCO2 Umbilical Venous 36 mmHg (30-63); pH Umbilical Venous 7.31 (7.25-7.45); pO2 Umbilical Venous 24 mmHg (17-41)
--- NOTE | 2022-10-30 23:50 | W.OBDELIVERY ---
Date of service: 10/30/22 Time of Service: 23:50 OB Labor/ Delivery Information Baby A Delivery Delivery Method: Spontaneaous Presentation: Cephalic Cephalic Position: Vertex Vertex Position: Right Occipital Anterior Breech Position: N/A Cord Description-Baby A: 3 Vessels, Nuchal Cord (nuchal cord x2 very tight, double clamped and cut on perineum prior to delivery of anterior shoulder and unwound from the neck), Tight and Clamped/Cut Amniotic Fluid: Clear Estimated Blood Loss: 200 QBL Delivery Outcome: Liveborn Transferred: Remains with Mother Note: Effective epidural placement accomplished with subsequent prolonged, late and variable decelerations noted, SVE at that time was 6 cm, decels lessened with maternal position changes and resucitative measures. Dr. Poe notified and came to unit, EXECUTIVE DIRECTOR [employer]LO[employer] MARKETING requested to remain inhouse. FSE applied after explaining procedure to pt and FOB and cvx was found to be completely dilated with head at 0 station 45 minutes after previous exam. Pt to H&K using CUB resulting in improved FHT tracing, 2nd stage huddle completed and coached pushing began. Dr. Poe arrived in room to evaluate tracing. After 45 minutes of stablized FHT in H&K position, pt repositioned to semifowlers with feet on squat bar and continued explusive efforts which were effective. Category 2 tracing persisted with variable decels and slow returns to baseline, Peds paged inhouse and OR crew on standby. A second 2nd stage huddle was completed and was accomplished with MD and CNM in attendance of a vigorous female infant over attempted intact perineum, tight nuchal cord x2 clamped and cut prior to delivery of anterior shoulder which then delivered easily, to mothers arms, cord gas collected by Dr. Poe, Dr. Moore came in the delivery room to assess who remained on mother's chest. Pitocin bolus begun, Odom placenta intact with 3VC, 2nd degree perineal laceration repaired with 3.0 Vicryl under epidural anesthesia. No additional lacerations were identified, fundus firm below umbilicus and lochia is minimal. Strong family bonding observed. Apgars 8/8, weight 2940 gms. Providers Doctor: Edna Poe Nurse Supervisor [place]: Radha Ramirez Manager Radiation: Jamison Cortez Billing Assistant: Ellen Moore Nurse: Fe Almodovar Nurse: Silke Llanos Other: supervisor engine assembly on unit Labor/Delivery Information Steroids Given: None Reason Steroids Not Administered: N/A Group Beta Strep: Negative Antibiotics Administered: No Rubella Status: Immune Blood Type: A+ Varicella Immunity: Immune Medication in Delivery: pitocin IV Shoulder Dystocia: No Stages of Labor Onset of Labor Date: 10/29/22 Onset of Labor Time: 11:38 Complete Dilatation Date: 10/30/22 Complete Dilatation Time: 21:34 Labor - Stage 1 Duration: 33 hours and 56 minutes ROM Baby A: 10/30/22 ROM Baby A: 18:50 Infant Delivery Date-Baby A: 10/30/22 Delivery Time-Baby A: 23:19 Labor Stage 2 Duration: 1 hours and 45 minutes Placenta Delivery Date-Baby A: 10/30/22 Placenta Delivery Time-Baby A: 23:25 Labor-Stage 3 Duration: 6 minutes Total Length of Labor-Baby A: 35 hours and 41 minutes Placenta Cultured: No Placenta Status: Delivered Baby A Infant Gender: Female Gestational Status: Term (39-41.6 wks) Gestational Age in Weeks/Days: 39 Weeks and 5 Days weight: 6 lb 7.705 oz Weight Comment: 2940 gms Score-1 Minute Interval(Baby A) Heart Rate-1 minute: 100 BPM or Greater Respiratory Effort- 1 minute: Spontaneous/Strong Cry Muscle Tone-1 minute: Minimal Flexion/Extension Reflex Response-1 minute: Prompt Response Color-1 minute: Bluish Hands or Feet Score-5 Minute Interval(Baby A) Heart Rate- 5 minute: 100 BPM or Greater Respiratory Effort-5 minute: Spontaneous/Strong Cry Muscle Tone-5 minute: Minimal Flexion/Extension Reflex Response-5 minute: Prompt Response Color-5 minute: Bluish Hands or Feet Procedure Procedures: Cord Blood Collection and Scalp Electrode Placement , indication for electrode: category 2 tracing, changing maternal positions Interventions Induction Indication: Gestational Diabetes, Type of Induction: Rider Bulb (Cook catheter), Misoprostol administration: Oral and Cervical Ripening (cervidil),/ Repair of Laceration
[2022-10-31] VITALS (8 sets, daily range): BP systolic 105–124; BP diastolic 55–78; PULSE 78–96; RESP 16; TEMP 36.6–36.8; O2SAT 99
--- NOTE | 2022-10-31 12:44 | W.ANESPOSTOP ---
Postoperative Evaluation Date, Time and Location Date Performed: 10/31/22 Time Performed: 12:44 Patient Location: Obstetrics Vital Signs Most Recent Imported Vital Signs: Most Recent Vital Signs Temp Pulse Resp BP Pulse Ox 36.6 C 90 16 106/68 99 10/31/22 08:10 10/31/22 08:10 10/31/22 08:10 10/31/22 08:10 10/31/22 08:10 Pain Score Most Recent Pain Score: Most Recent Pain Score Pain Level 0 10/29/22 11:35 Assessment Mental Status: Awake (Alert & Oriented to Patient Baseline) Airway and Respiratory Function: Patent airway with normal (patient baseline) respiratory exam Cardiovascular Function: Hemodynamically Stable Hydration Status: Adequately Hydrated Nausea & Vomiting: No Nausea or Vomiting Pain: Pain is tolerable per patient Peripheral Nerve Block: Patient did not receive a nerve block
--- NOTE | 2022-10-31 14:31 | W.PM.OBPNV1 ---
Date of service: 10/31/22 Time of Service: 14:32 Assessment and Plan Assessment and plan (1) Term of female : Status: Acute Assessment and plan: Caring for baby independently. Pain is managed well with oral analgesics. Voiding without difficulty. well with assistance. A - stable mother and baby , Post day 1 P - Discharge to home after 48 hours. Routine post instructions. [facility] Subjective Subjective Interval history: Sara feels well. She is having some difficulty with latch but has been receiving assistance from the nurse. Patient's Mood: good baby status: Other (Needing assistance with latch but latched well with guidance this afternoon) Exam Physical Exam Vital signs: Temp Pulse Resp BP Pulse Ox 97.9 F 90 16 106/68 99 10/31/22 08:10 10/31/22 08:10 10/31/22 08:10 10/31/22 08:10 10/31/22 08:10 Respiratory Exam Respiratory Exam: Normal Cardiovascular Exam Cardiovascular Exam: Normal Fundal Exam Fundus: Below Umbilicus and Firm Extremities Exam Extremity Exam: Normal Skin Exam Skin Exam: Normal Psychiatric Exam Psychiatric Exam: Normal Results Hemoglobin/Hematocrit: Hgb 12.4 g/dL (11.2-15.7) 10/29/22 10:55 Hct 35.6 % (36.0-46.0) L 10/29/22 10:55 Abnormal Lab Findings: Abnormal Labs 10/29/22 10/29/22 10:55 10:55 WBC 11.72 H Hct 35.6 L Sodium 134 L AST 14 L Alkaline Phosphatase 120 H Total Protein 6.1 L Albumin 2.4 L
[2022-11-01 09:20] VITALS: BP 107/68; PULSE 85; RESP 18; TEMP 36.6
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
== END 2022-11-01 13:00 | disposition home or self-care (01) | DRG 806 ==
PROVIDERS: Obstetrics & Gynecology; Admitting Provider Advanced Practice Midwife; PCP Student in an Organized Health Care Education/Training Program; Visit Provider Advanced Practice Midwife
DX: O24.410 Gestational diabetes mellitus in pregnancy, diet controlled (principal); O99.324 Drug use complicating childbirth; Z37.0 Single live birth; O99.354 Diseases of the nervous system complicating childbirth; Z3A.39 39 weeks gestation of pregnancy; O76 Abnormality in fetal heart rate and rhythm complicating labor and delivery; O70.1 Second degree perineal laceration during delivery; O69.1XX0 Labor and delivery complicated by cord around neck, with compression, not applicable or unspecified; O99.02 Anemia complicating childbirth; D64.9 Anemia, unspecified; O99.344 Other mental disorders complicating childbirth; F41.8 Other specified anxiety disorders; G43.909 Migraine, unspecified, not intractable, without status migrainosus; F98.8 Other specified behavioral and emotional disorders with onset usually occurring in childhood and adolescence; G47.00 Insomnia, unspecified; R10.13 Epigastric pain; M54.2 Cervicalgia; M25.552 Pain in left hip; M25.551 Pain in right hip; F12.90 Cannabis use, unspecified, uncomplicated; E55.9 Vitamin D deficiency, unspecified; R07.89 Other chest pain; O75.89 Other specified complications of labor and delivery
CPT/HCPCS: 36415; 80053; 82803; 85027; 86850; 86900; 86901; 59025; 83036; J2371; J2405; J3010; J3490

== ENCOUNTER 2022-12-12 02:29 | Outpatient (CLI) | payer OTHER, SELFPAY ==
[2022-12-12 10:47] LABS: Bilirubin Negative (Negative); Blood Negative (Negative); Clarity Clear (Clear); Glucose Negative (Negative); Ketones Negative (Negative); Leukocyte Esterase Negative (Negative); Nitrite Negative (Negative); Specific Gravity 1.025 (1.005-1.025); Urobilinogen 0.2 mg/dL (Up to 0.2)
[2022-12-12 11:10] LABS: BUN 14 mg/dL (7-18); CREATININE 0.8 mg/dL (0.55-1.02); Calcium 9.1 mg/dL (8.5-10.1); Chloride 103 mmol/L (98-107); Estimated GFR 99.09 (mL/min/1.73m2); Glucose 84 mg/dL (74-106); Sodium 138 mmol/L (136-145)
[2022-12-12 11:15] LABS: Iron 85 ug/dL (50-170); Total Iron Binding Capacity 298 ug/dL (250-450); Transferrin Sat 29 % (15-50)
[2022-12-12 11:38] LABS: Vitamin D 25 Total 28.8 ng/mL (30-100)
[2022-12-12 12:01] LABS: Calculated LDL 224 mg/dL (<100); Cholesterol 301 mg/dL (<200); HDL Cholesterol 60 mg/dL (40-60); TSH (W/Ref FT4) 0.51 uIU/mL (0.36-3.74); Triglyceride 88 mg/dL (<150)
[2022-12-12 14:18] LABS: GTT Comment See Comments
== END 2022-12-12 02:30 | disposition home or self-care (01) ==
LOC: LBO 02:30
PROVIDERS: Advanced Practice Midwife; PCP Student in an Organized Health Care Education/Training Program; Referring Provider Student in an Organized Health Care Education/Training Program; Visit Provider Student in an Organized Health Care Education/Training Program
DX: Z86.32 Personal history of gestational diabetes (principal); R10.13 Epigastric pain; Z91.89 Other specified personal risk factors, not elsewhere classified; Z13.220 Encounter for screening for lipoid disorders; R79.89 Other specified abnormal findings of blood chemistry
CPT/HCPCS: 80048; 80061; 82306; 81003; 82951; 83540; 83550; 84443

== ENCOUNTER 2023-05-03 12:33 | Emergency (ER) | payer OTHER, MEDICAID, SELFPAY ==
[2023-05-03 13:02] VITALS: BP 118/63; PULSE 87; RESP 16; TEMP 37.2; O2SAT 98
[2023-05-03 14:12] VITALS: BP 118/82; PULSE 80; RESP 16; TEMP 36.8; O2SAT 99
[2023-05-03 14:35] LABS: Bilirubin Negative (Negative); Blood Negative (Negative); Clarity Clear (Clear); Glucose Negative (Negative); Ketones Negative (Negative); Leukocyte Esterase Trace (Negative); Nitrite Negative (Negative); Specific Gravity 1.015 (1.005-1.025); Urobilinogen 0.2 mg/dL (Up to 0.2); pH 7.5 (5-8)
[2023-05-03 14:42] LABS: Bacteria Few HPF (Negative); C & S Indicated? No/Sq. Contamination; Casts Negative LPF (Negative); Crystals Negative HPF (Negative); Epithelial Cells Many HPF (Negative); Mucus Negative (Negative); RBC 0-2 HPF (0-2)
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
--- NOTE | 2023-05-03 14:45 | DI.CT_ITS ---
Exam(s) CT RENAL COLIC WO EXAM: CT RENAL COLIC WO CLINICAL HISTORY: left flank pain. TECHNIQUE: Imaging Protocol: Axial computed tomography images with coronal and sagittal reformatted images were created and reviewed CONTRAST MATERIAL: Intravenous: none Oral: None COMPARISON: No exams were available for comparison FINDINGS: VISUALIZED LUNG BASES: No nodules nor pleural effusions evident. ABDOMEN: There is no ascites. LIVER: There are no obvious focal hepatic lesions evident of this noninfused study. GALLBLADDER/BILIARY: No obvious gallbladder pathology. CBD is not dilated. PANCREAS: No evidence of pancreatic mass nor dilatation of the pancreatic duct. SPLEEN: Spleen is not enlarged. No obvious intrasplenic lesions. Small splenule noted. ADRENALS: There are no significant adrenal masses. KIDNEYS:No cysts evident. No solid renal masses. No calculi nor hydronephrosis. . ABDOMINAL AORTA: Abdominal aorta is not enlarged. LYMPH NODES: There is no retroperitoneal nor paraaortic adenopathy. There are multiple small sub cm mesenteric lymph nodes evident. ABDOMINAL WALL: No evidence of significant anterior abdominal wall nor inguinal hernia. GI: There is no evidence of bowel obstruction, free air, nor abscess. PELVIS: LYMPH NODES: There is no intrapelvic nor inguinal adenopathy. GI: The appendix is not identified as a separate structure but there is no evidence of appendicitis. Terminal ileum appears unremarkable.No evidence of sigmoid diverticulitis. URINARY BLADDER: There is mild uniform thickening of the bladder wall. REPRODUCTIVE: Uterus appears age-appropriate. Adnexal regions/ovaries appear age-appropriate. There is a small amount of fluid in the cul-de-sac which is probably female physiologic. OSSEOUS: No significant osseous lesions. Mild anterolisthesis L5 upon S1 due to bilateral pars defec ts at L5 level. No true fractures evident. IMPRESSION: 1. No evidence of urinary tract calculi nor obstruction of the urinary tracts, as per request. 2. There is mild uniform thickening of the urinary bladder wall. This may be related to cystitis or under distension. There are no radiopaque calculi nor masses evident in the bladder lumen. 3. There is a small amount of fluid in the cul-de-sac which is probably female physiologic. There ar e no abnormal adnexal findings. 4. The appendix is not identified but there is no evidence of acute appendicitis. 5. There are multiple small sub cm mesenteric lymph nodes. No evidence of enteritis pattern. Termi nal ileum appears unremarkable. Abundant fecal material in the colon but no colitis pattern evident. No splenomegaly. RADIATION DOSE DELIVERED: Total DLP DATA REPOSITORY: All CT scans at this facility are submitted to the National Radiology Data Registry (NRDR) Dose Index Registry (DIR) with the [employer] (A[employer]). RADIATION OPTIMIZATION: All CT scans at this facility use at least one of these dose optimization te chniques: automated exposure control; mA and/or kV adjustment per patient size (includes targeted exa ms where dose is matched to clinical indication); or iterative reconstruction.
== END 2023-05-03 16:15 | disposition home or self-care (01) ==
PROVIDERS: Emergency Provider Emergency Medicine; PCP Student in an Organized Health Care Education/Training Program
DX: R10.32 Left lower quadrant pain (principal); Z87.891 Personal history of nicotine dependence
CPT/HCPCS: 81025; 99284; 74176; 81003; 81015

== ENCOUNTER 2023-06-12 04:03 | Outpatient (CLI) | payer OTHER, MEDICAID, SELFPAY ==
[2023-06-12 17:20] LABS: ALT 19 U/L (14-59); AST 12 U/L (15-37); Albumin 3.3 g/dL (3.4-5.0); Alkaline Phosphatase 86 U/L (46-116); Anion Gap 10.8 mmol/L (3-11); BUN 13 mg/dL (7-18); Bilirubin, Total 0.3 mg/dL (0.2-1.0); CO2 23.2 mmol/L (21.0-32.0); CREATININE 0.6 mg/dL (0.55-1.02); Calcium 9.1 mg/dL (8.5-10.1); Calculated LDL 124 mg/dL (<100); Chloride 100 mmol/L (98-107); Cholesterol 209 mg/dL (<200); Estimated GFR 120.72 (mL/min/1.73m2); Glucose 119 mg/dL (74-106); HDL Cholesterol 68 mg/dL (40-60); Potassium 3.5 mmol/L (3.5-5.1); Sodium 134 mmol/L (136-145); TSH (W/Ref FT4) 0.26 uIU/mL (0.36-3.74); Total Protein 6.9 g/dL (6.4-8.2); Triglyceride 85 mg/dL (<150)
[2023-06-12 17:32] LABS: Iron 27 ug/dL (50-170)
[2023-06-12 17:56] LABS: Vitamin D 25 Total 29.7 ng/mL (30-100)
== END 2023-06-12 04:04 | disposition home or self-care (01) ==
LOC: LBO 04:03
PROVIDERS: Absent Provider Student in an Organized Health Care Education/Training Program; PCP Student in an Organized Health Care Education/Training Program; Referring Provider Student in an Organized Health Care Education/Training Program; Visit Provider Student in an Organized Health Care Education/Training Program
DX: Z13.220 Encounter for screening for lipoid disorders (principal); Z13.1 Encounter for screening for diabetes mellitus; Z00.00 Encounter for general adult medical examination without abnormal findings; R79.89 Other specified abnormal findings of blood chemistry; Z39.1 Encounter for care and examination of lactating mother; K90.9 Intestinal malabsorption, unspecified; R00.2 Palpitations
CPT/HCPCS: 36415; 80053; 80061; 82306; 83540; 84439; 84443

== ENCOUNTER 2023-07-12 04:49 | Outpatient (CLI) | payer OTHER, MEDICAID, SELFPAY ==
[2023-07-12 16:05] LABS: Panorama Kit Sent via Fed Ex
[2023-07-12 16:19] LABS: Abs Immature Grans 0.04 10^3/uL (0.0-0.06); Absolute Basophil Count 0.05 10^3/uL (0.0-0.2); Absolute Eosinophil Count 0.24 10^3/uL (0.0-0.7); Absolute Lymphocyte Count 4.52 10^3/uL (1.2-3.4); Absolute Monocyte Count 0.95 10^3/uL (0.1-0.8); Absolute Neutrophil Count 3.36 10^3/uL (1.2-6.7); Basophils % 0.5; Eosinophils % 2.6; HCT 35.1 % (36.0-46.0); HGB 12.6 g/dL (11.2-15.7); Immature Grans % 0.4; Lymphocytes % 49.3; MCH 31.4 pg (27.0-33.0); MCHC 35.9 % (32.0-36.0); MCV 88 fL (80-95); MPV 9.8 fL (8.0-11.0); Monocytes % 10.4; Neutrophils % 36.8; Platelet Count 226 10^3/uL (130-400); RBC 4.01 10^6/uL (3.93-5.22); RDW 11.8 % (11.7-14.6); RDW-SD 37.7 fL; WBC 9.16 10^3/uL (4.4-10.8)
[2023-07-13 18:07] LABS: Hepatitis B Surface Ag Negative (Negative)
[2023-07-13 18:43] LABS: Hepatitis C Ab w Rflx HCV PCR Negative (Negative)
[2023-07-13 18:48] LABS: HIV-1/2 Ag & Ab Screen Negative (Negative)
[2023-07-14 10:37] LABS: Varicella IgG Antibody Positive (See Note)
[2023-07-14 10:40] LABS: Rubella IgG Ab (UVM) Positive (See Note)
[2023-07-16 12:57] LABS: Syphilis IgG w/Reflex Nonreactive (Nonreactive)
[2023-07-25 16:29] LABS: Result Summary NEGATIVE; Specimen WB Whole Blood
== END 2023-07-12 04:50 | disposition home or self-care (01) ==
LOC: LBO 04:49
PROVIDERS: PCP Student in an Organized Health Care Education/Training Program; Visit Provider Advanced Practice Midwife
DX: Z34.91 Encounter for supervision of normal pregnancy, unspecified, first trimester (principal); Z3A.12 12 weeks gestation of pregnancy; Z36.89 Encounter for other specified antenatal screening
CPT/HCPCS: 36415; 81220; 81222; 86787; 86803; 86850; 86900; 86901; 87340; 87389; 85025; 86762; 86780

== ENCOUNTER 2023-07-12 15:15 | Outpatient (REF) | payer OTHER, MEDICAID, SELFPAY ==
[2023-07-12 17:23] LABS: *AMPHETAMINES SCREEN URINE Negative (Negative); *BARBITURATES SCREEN URINE Negative (Negative); *BENZODIAZEPINES SCREEN URINE Negative (Negative); Cannabinoids THC Negative (Negative); Cocaine Screen,Urine Negative (Negative); METHADONE URINE SCREEN Negative (Negative); OPIATES URINE SCREEN Negative (Negative)
[2023-07-12 17:24] LABS: Tricyclic Antidepressants Negative (Negative)
[2023-07-14 12:11] LABS: Fentanyl Scr w/Rfx Confirm Negative ng/mL (<1)
[2023-07-14 12:59] LABS: Chlamydia Result Negative (Negative); GC Result Negative (Negative)
[2023-07-20 10:08] LABS: Buprenorphine Negative ng/mL (Cutoff: 5.0); Norbuprenorphine Negative ng/mL (Cutoff: 2.5)
== END 2023-07-12 15:16 | disposition home or self-care (01) ==
LOC: LBN 15:15
PROVIDERS: PCP Student in an Organized Health Care Education/Training Program; Visit Provider Advanced Practice Midwife
DX: Z34.91 Encounter for supervision of normal pregnancy, unspecified, first trimester (principal)
CPT/HCPCS: 80307; 80348; 87491; 87591; 87086

== ENCOUNTER 2023-09-06 05:18 | Outpatient (CLI) | payer OTHER, MEDICAID, SELFPAY ==
[2023-09-06 09:46] LABS: HGB 11.6 g/dL (11.2-15.7)
[2023-09-06 10:03] LABS: Glucose,1 Hr (Glucola) 136 mg/dL (80-140)
[2023-09-06 10:16] LABS: Anion Gap 8.3 mmol/L (3-11); BUN 10 mg/dL (7-18); CO2 24.7 mmol/L (21.0-32.0); CREATININE 0.6 mg/dL (0.55-1.02); Calcium 8.3 mg/dL (8.5-10.1); Chloride 102 mmol/L (98-107); Estimated GFR 120.72 (mL/min/1.73m2); Glucose 134 mg/dL (74-106); Potassium 3.5 mmol/L (3.5-5.1); Sodium 135 mmol/L (136-145); TSH (W/Ref FT4) 0.41 uIU/mL (0.36-3.74)
[2023-09-06 10:41] LABS: Vitamin D 25 Total 36.8 ng/mL (30-100)
[2023-09-12 02:22] LABS: Lab Add On Test DONE
== END 2023-09-06 05:19 | disposition home or self-care (01) ==
LOC: LBO 05:18
PROVIDERS: Advanced Practice Midwife; PCP Student in an Organized Health Care Education/Training Program; Visit Provider Advanced Practice Midwife
DX: R79.89 Other specified abnormal findings of blood chemistry (principal); K90.9 Intestinal malabsorption, unspecified; I10 Essential (primary) hypertension; Z34.90 Encounter for supervision of normal pregnancy, unspecified, unspecified trimester
CPT/HCPCS: 36415; 80048; 82306; 82950; 83036; 84443; 85018

== ENCOUNTER 2023-09-22 05:10 | Outpatient (CLI) | payer OTHER, MEDICAID, SELFPAY ==
[2023-09-22 11:19] LABS: Glucose,1 Hr (Glucola) 144 mg/dL (80-140)
== END 2023-09-22 05:11 | disposition home or self-care (01) ==
LOC: LBO 05:10
PROVIDERS: PCP Student in an Organized Health Care Education/Training Program; Visit Provider Advanced Practice Midwife
DX: Z34.92 Encounter for supervision of normal pregnancy, unspecified, second trimester (principal); Z3A.22 22 weeks gestation of pregnancy
CPT/HCPCS: 36415; 82950

== ENCOUNTER 2023-10-20 02:49 | Outpatient (CLI) | payer OTHER, MEDICAID, SELFPAY ==
[2023-10-20 10:28] LABS: Glucose 1 Hour 165 mg/dL
[2023-10-20 11:08] LABS: HCT 32.9 % (36.0-46.0); HGB 11.5 g/dL (11.2-15.7); MCH 31.7 pg (27.0-33.0); MCV 91 fL (80-95); MPV 9.8 fL (8.0-11.0); Platelet Count 210 10^3/uL (130-400); RBC 3.63 10^6/uL (3.93-5.22); RDW 13.2 % (11.7-14.6); RDW-SD 43.1 fL; WBC 12.14 10^3/uL (4.4-10.8)
[2023-10-20 12:41] LABS: Glucose 3 Hour 86 mg/dL
== END 2023-10-20 02:50 | disposition home or self-care (01) ==
LOC: LBO 02:49
PROVIDERS: Advanced Practice Midwife; PCP Student in an Organized Health Care Education/Training Program; Visit Provider Advanced Practice Midwife
DX: Z34.90 Encounter for supervision of normal pregnancy, unspecified, unspecified trimester (principal); Z86.32 Personal history of gestational diabetes; R73.09 Other abnormal glucose
CPT/HCPCS: 36415; 85027; 82951

== ENCOUNTER 2023-11-02 15:19 | Outpatient (REF) | payer OTHER, MEDICAID, SELFPAY ==
[2023-11-02 18:39] LABS: *AMPHETAMINES SCREEN URINE Negative (Negative); *BARBITURATES SCREEN URINE Negative (Negative); *BENZODIAZEPINES SCREEN URINE Negative (Negative); Cannabinoids THC Negative (Negative); Cocaine Screen,Urine Negative (Negative); METHADONE URINE SCREEN Negative (Negative); OPIATES URINE SCREEN Negative (Negative)
[2023-11-02 18:40] LABS: Tricyclic Antidepressants Negative (Negative)
[2023-11-06 10:13] LABS: Fentanyl Scr w/Rfx Confirm Negative ng/mL (<1)
[2023-11-09 05:26] LABS: Buprenorphine Negative ng/mL (Cutoff: 5.0)
== END 2023-11-02 15:20 | disposition home or self-care (01) ==
LOC: LBN 15:19
PROVIDERS: PCP Student in an Organized Health Care Education/Training Program; Visit Provider Advanced Practice Midwife
DX: Z34.93 Encounter for supervision of normal pregnancy, unspecified, third trimester (principal)
CPT/HCPCS: 80307; 80348

== ENCOUNTER 2023-12-29 15:58 | Outpatient (REF) | payer OTHER, MEDICAID, SELFPAY | END 2023-12-29 15:59 | disposition home or self-care (01) | LOC: LBN 15:58 | PROVIDERS: PCP Student in an Organized Health Care Education/Training Program; Visit Provider Advanced Practice Midwife | DX: Z34.93 Encounter for supervision of normal pregnancy, unspecified, third trimester (principal) | CPT/HCPCS: 87081 ==

== ENCOUNTER 2024-01-19 16:11 | Outpatient (CLI) | payer OTHER, MEDICAID, SELFPAY ==
[2024-01-19 16:45] VITALS: BP 125/76; PULSE 76
[2024-01-19 16:47] VITALS: BP 127/76; PULSE 76; RESP 16; TEMP 36.7
[2024-01-19 16:53] VITALS: BP 108/72; PULSE 78
[2024-01-19 17:01] VITALS: BP 108/72; PULSE 78
[2024-01-19 17:14] LABS: COMMENT (LAB VIEW ONLY) 16.42 mg/dL; PROTEIN < 6.0 mg/dL
--- NOTE | 2024-03-29 14:53 | W.OBNST ---
Date of service: 01/19/24 Time of Service: 17:00 NST Evaluation Reason for NST Reasons for Nonstress Test: GESTATIONAL HYPERTENSION Gestational Age Gestational Age in Weeks and Days: 40 Weeks and 2Days Test and Monitor Explained Test/Monitor Explained: Test Explained Vital Signs Blood Pressure: 108/72 Pulse: 78 NST Information Date on Monitor: 01/19/24 Time on Monitor: 16:15 Date off Monitor: 01/19/24 Time off Monitor: 17:00 Total Time on Monitor: 45 NST Interventions: None Contraction Frequency: 0 NST Evaluation Patient States Movement: Present FHR Baseline: 125 Variability: Moderate 6-25 bpm Accelerations: 15x15 Decelerations: None NST Results: Reactive Note Ultrasound Done: N/A. NST Note NST Reviewed and Verified by: Radha Ramirez
[2024-03-29 14:54] VITALS: BP 108/72; PULSE 78
== END 2024-01-19 17:08 ==
LOC: BCD 16:11 → OBS 16:19
PROVIDERS: PCP Student in an Organized Health Care Education/Training Program; Visit Provider Advanced Practice Midwife
DX: O13.3 Gestational [pregnancy-induced] hypertension without significant proteinuria, third trimester (principal); Z3A.40 40 weeks gestation of pregnancy
CPT/HCPCS: 59025; 82565; 84156

== ENCOUNTER 2024-01-22 02:56 | Inpatient (IN) | payer OTHER, MEDICAID, SELFPAY ==
[2024-01-22] VITALS (89 sets, daily range): BP systolic 104–155; BP diastolic 55–88; PULSE 72–120; RESP 16–18; TEMP 36.7–36.8; O2SAT 94–100; BMI 32.8
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
[2024-01-22 03:28] LABS: HCT 37.4 % (36.0-46.0); MCH 31.4 pg (27.0-33.0); MCHC 34.8 % (32.0-36.0); MCV 90 fL (80-95); Platelet Count 244 10^3/uL (130-400); RBC 4.14 10^6/uL (3.93-5.22); RDW 13.6 % (11.7-14.6); RDW-SD 44.6 fL; WBC 14.65 10^3/uL (4.4-10.8)
[2024-01-22] MEDS: Penicillin G POT. 5,000,000 UNITS in Normal Saline 100 ML 200 UNITS IVPB (03:29)
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
[2024-01-22 03:47] LABS: *AMPHETAMINES SCREEN URINE Negative (Negative); *BARBITURATES SCREEN URINE Negative (Negative); *BENZODIAZEPINES SCREEN URINE Negative (Negative); Cannabinoids THC Negative (Negative); Cocaine Screen,Urine Negative (Negative); METHADONE URINE SCREEN Negative (Negative); OPIATES URINE SCREEN Negative (Negative); Tricyclic Antidepressants Negative (Negative)
[2024-01-22] MEDS: Lactated Ringers 1,000 ML 125 ML IV (04:00)
[2024-01-22] MEDS: FentaNYL/ROPIvacaine 2 mcg/ml and 0.1% 200 ML CADD Cassette EP (04:00)
--- NOTE | 2024-01-22 04:27 | ANES.NEUR_ITS ---
Epidural/Spinal Catheter Date Performed: 01/22/24 Procedure Start: 04:04 Procedure Stop: 04:15 Requesting Provider: Radha Ramirez Procedure Location: Obstetrics Reason Performed: Labor Epidural Standard Monitors Applied: Blood Pressure and SpO2 Patient Position: Sitting Sedation Given (Indicate Dose Given): No Sedation given Patient Mental Status: Awake Sterility: Hand Hygiene, Surgical Cap, Surgical Mask, Sterile Gloves, Sterile Drape/Sheet and Chlorhexidine Procedure Location: L3-L4 Interspace Epidural Needle: Tuohy 17 Guage Needle Length: 3.5 Inch Needle Approach: Midline Epidural Procedure: Skin Prepped, Sterile Drape Placed, 1% Lidocaine to skin and subcutaneous tissue with 25G needle, Tuohy Needle placed, DAVID to Saline Used, Epidural Catheter Placed, Negative Heme, Negative CSF Flow and Tuohy Needle Removed Catheter Placed?: Catheter Placed Test Dose (Indicate Dose Given): 5ml 1.5% Lidocaine with 1:200K Epinephrine Given and Negative Test Dose Loss of Resistance Depth (cm): 8 Catheter depth at skin (cm): 13 Dressing: Sorbaview Dressing Placed, Mastisol Used and Dressing reinforced with Tape Epidural Provider Bolus (Indicate Dose Given): Total Ropivacaine 0.1% with Fentanyl 2mcg/ml Given from pump. (ml) Dose:: 10 Additives (Indicate Dose Given ): None Infusion Medication: Medication Infusion Began Medication Infusion: Ropivacaine 0.1% with Fentanyl 2mcg/ml Maintenance Infusion Rate (ml/hour): 10 PCEA Bolus Dose (ml): 5 Block Level: N/A Paresthesia: None and Right Paresthesia Duration: Persistent (Persistent with i nitial catheter placement, catheter and tuohy removed. Reattempted with good placement and without paresthesia. Paresthesia ceased with initial catheter removal. ) Ultrasound: Not Used Number of Attempts (See previous attempts in note section): 2 Procedure Tolerated: Patient tolerated well and Complications Encountered (Initial paresthesia: ceased with catheter removal. No paresthesia with 2nd attempt. ) Procedure Outcome: Successful Performed By: Nehemias Carr
--- NOTE | 2024-01-22 05:18 | W.PM.OBNL1 ---
Date of service: 01/22/24 Time of Service: 05:18 Informed Consent Informed Consent: Regional Anesthesia and Risk,Benefits,Alternatives Discussed Pelvic Exam Dilation: 7 Effacement (%): 100 station: -2 Position: LOP Contractions Monitor Mode: External Contraction Frequency(min): 3-4 since epidural initiated Intensity: Moderate/Strong Fetus A Monitor: External (US) Heart Rate Baseline: 140 Variability: Moderate (6-25 BPM) Categories: Category I Accelerations: 15 X 15 Decelerations: Early Amniotic Membrane Status: Ruptured Rupture Method: Artifical Amniotic Fluid: Meconium Amount: moderate Date of Membrane Rupture: 01/22/24 Time of Membrane Rupture: 05:18 Assessment and Plan Assessment and plan (1) Normal labor: Status: Acute Assessment and plan: A: Epidural anesthesia initiated and effective AROM done for meconium fluid Category 1 tracing, active labor P: Maternal position changes to facilitate rotation/descent Consider pitocin augmentation if progress slows Anticipate Objective Abnormal lab results 01/22/24 Range/Units 03:13 WBC 14.65 H (4.4-10.8) 10^3/uL Temp Pulse Resp BP Pulse Ox 98.0 F 90 16 117/61 94 01/22/24 05:02 01/22/24 05:16 01/22/24 04:37 01/22/24 05:10 01/22/24 05:16 Laboratory Results WBC 14.65 10^3/uL (4.4-10.8) H 01/22/24 03:13 RBC 4.14 10^6/uL (3.93-5.22) 01/22/24 03:13 Hgb 13.0 g/dL (11.2-15.7) 01/22/24 03:13 Hct 37.4 % (36.0-46.0) 01/22/24 03:13 MCV 90 fL (80-95) 01/22/24 03:13 MCH 31.4 pg (27.0-33.0) 01/22/24 03:13 MCHC 34.8 % (32.0-36.0) 01/22/24 03:13 RDW 13.6 % (11.7-14.6) 01/22/24 03:13 Plt Count 244 10^3/uL (130-400) 01/22/24 03:13 MPV 10.0 fL (8.0-11.0) 01/22/24 03:13 Urine Opiates Screen Negative (Negative) 01/22/24 03:00 Urine Methadone Screen Negative (Negative) 01/22/24 03:00 Ur Barbiturates Screen Negative (Negative) 01/22/24 03:00 Ur Tricyclics Screen Negative (Negative) 01/22/24 03:00 Ur Amphetamines Screen Negative (Negative) 01/22/24 03:00 U Benzodiazepines Scrn Negative (Negative) 01/22/24 03:00 Urine Cocaine Screen Negative (Negative) 01/22/24 03:00 Ur THC Screen Negative (Negative) 01/22/24 03:00 ABO/Rh A Positive 01/22/24 03:13 Antibody Screen NEGATIVE 01/22/24 03:13 Vital Signs Reviewed: Yes Subjective Interval history since last seen: Epidural is effective, pt able to relax though feeling intermittently nauseous.
--- NOTE | 2024-01-22 06:25 | W.PM.OBNL1 ---
Date of service: 01/22/24 Time of Service: 06:25 Pelvic Exam Dilation: 7.5 Effacement (%): 100 station: -2 Contractions Monitor Mode: External Contraction Frequency(min): 3-5 Fetus A Monitor: Internal (FSE) Heart Rate Baseline: 140 Variability: Moderate (6-25 BPM) Categories: Category I Accelerations: Present Decelerations: Prolonged (FHT to 60 bpm when pt moved from H&K to semifowlers, returned to baseline after 5 minutes, FSE placed, back to H&K position) Amniotic Membrane Status: Ruptured Assessment and Plan Assessment and plan (1) Normal labor: Status: Acute Assessment and plan: A: single episode of 5 min decel, occurred w/position change in prep for straight cath, decel resolved spontaneously, cat 1 w/moderate variability and stable baseline P: FSE attached without difficulty, pt returned to H&K position Will reattempt position change for bladder emptying Reassess for pitocin augmentation Subjective Interval history since last seen: Effective epidural, occasionally feels pelvic pressure.
[2024-01-22] MEDS: Penicillin G POT. 3,000,000 UNITS in Normal Saline 50 ML 100 UNITS IVPB (07:06)
--- NOTE | 2024-01-22 08:37 | W.PM.OBNL1 ---
Date of service: 01/22/24 Time of Service: 07:50 Informed Consent Informed Consent: Regional Anesthesia and Risk,Benefits,Alternatives Discussed Pelvic Exam Dilation: 9.5 station: +1 Fetus A Categories: Category II Decelerations: Late, Variable and Prolonged Assessment Note: FHT recovers best in H&K position Assessment and Plan Assessment and plan (1) heart rate non-reassuring affecting management of mother: Status: Acute Assessment and plan: A: Concerning category 2 tracing, close to 2nd stage Effective epidural, pt able to mount strong pushing efforts Cephalic presentation possible in persistent OP position @ +1 station P: Dr. Hayes to room to evaluate for possible VAVD Peds on standby to attend delivery, Dr. Poe available to assist (2) Normal labor: Status: Acute Objective Objective Narrative Objective Narrative: Pt turned to semi-fowlers for straight cath of 150 ml urine, turned back to H&K due to ensuing bradycardia, FHT slow to recover Cvx a rim, attempts to reduce manually with maternal pushing efforts minimally successful Dr. Hayes notified of category 2 tracing with slow resolution nad delivery not immediately imminent Peds (Dr. Petit) requested to attend delivery due to meconium and category 2 tracing
[2024-01-22] MEDS: Oxytocin/Normal Saline 30 UNIT/500 ML BAG 334 UNITS IV (08:46)
--- NOTE | 2024-01-22 10:33 | W.OBDELIVERY ---
Date of service: 01/22/24 Time of Service: 10:34 OB Labor/ Delivery Information Baby A Delivery Delivery Method: Assisted Presentation: Cephalic Cephalic Position: Vertex Breech Position: N/A Cord Description-Baby A: 3 Vessels Cord Description Comment: no nuchal or body umbilical cord noted. Amniotic Fluid: Meconium Estimated Blood Loss: 100 Delivery Outcome: Liveborn Infant Complications: none Infant Transferred: Remains with Mother Providers Doctor: Flores Hayes Nurse Baker Bread: Radha Ramirez Board Certified Arts Therapist: Nehemias Carr Supervisor Customer Records Division: Tejas Petit Nurse: Charlene Clemente Nurse: Conchis Rosado Other: Labor/Delivery Information Number of Babies in Womb: 1 Steroids Given: None Reason Steroids Not Administered: N/A Group Beta Strep: Positive Antibiotics Administered: Yes Number of Doses of Antibiotics: 2 Rubella Status: Immune Blood Type: A+ Varicella Immunity: Immune Shoulder Dystocia: No Note: Placenta delivered intact with nl configuration and 3 vessel cord. 2nd degree perineal laceration was repaired with 2-0 Vicryl in the usual fashion. Stages of Labor Onset of Labor Date: 01/22/24 Onset of Labor Time: 00:00 Complete Dilatation Date: 01/22/24 Complete Dilatation Time: 07:55 Labor - Stage 1 Duration: 7 hours and 55 minutes ROM Baby A: 01/22/24 ROM Baby A: 05:18 ROM Total Time- Baby A: [id number] Delivery Date-Baby A: 01/22/24 Delivery Time-Baby A: 08:45 Labor Stage 2 Duration: 50 minutes Placenta Delivery Date-Baby A: 01/22/24 Placenta Delivery Time-Baby A: 08:54 Labor-Stage 3 Duration: 9 minutes Total Length of Labor-Baby A: 8 hours and 45 minutes Placenta Status: Delivered Baby A Gender: Male Gestational Status: Term (39-41.6 wks) Gestational Age in Weeks/Days: 40 Weeks and 2 Days weight: 6 lb 12.644 oz Length-Baby A: 13.5 in Head Circumference-Baby A: 13 in Score-1 Minute Interval(Baby A) Heart Rate-1 minute: 100 BPM or Greater Respiratory Effort- 1 minute: Spontaneous/Strong Cry Muscle Tone-1 minute: Active Movement Reflex Response-1 minute: Minimal Response Color-1 minute: Pallor or Cyanosis Total Score-1 minute: 7 Score-5 Minute Interval(Baby A) Heart Rate- 5 minute: 100 BPM or Greater Respiratory Effort-5 minute: Spontaneous/Strong Cry Muscle Tone-5 minute: Active Movement Reflex Response-5 minute: Prompt Response Color-5 minute: Pallor or Cyanosis Total Score- 5 minute: 8 Interventions Assisted Delivery Baby A , Type of Assisted Delivery: Vacuum Indication for Vacuum Assisted Delivery: Non Reassuring Heart Rate, Date Applied: 01/22/24, Time of Application: 08:38, Reduction of Pressure Between Contractions: Yes, Number of Pulls: 3, Number of Pop Offs: 2, Number of Contractions: 3 Total Minutes Vacuum Applied: 6. Kiwi Cup applied with vertex in at +3 station. Over course of 3 contractions with 3 pulls per contractions the vertex was brought to and as the head was delivered without difficulty the Kiwi-Cup suction was deflated and the cup removed. :
[2024-01-22] MEDS: Dibucaine 1% 28 GM TUBE TP (20:00)
[2024-01-22] MEDS: Hamamelis Leaf/Glycerin 100 EACH BOX PR (20:00)
[2024-01-23] MEDS: Acetaminophen 325 MG TAB 650 MG PO (00:04)
[2024-01-23 07:30] VITALS: BP 119/68; PULSE 103; RESP 20; TEMP 36.4; O2SAT 98
[2024-01-23 14:00] VITALS: BP 116/75; PULSE 88; RESP 18; TEMP 36.3; O2SAT 99
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
[2024-01-26 08:48] LABS: Buprenorphine Negative ng/mL (Cutoff: 5.0); Norbuprenorphine Negative ng/mL (Cutoff: 2.5)
== END 2024-01-23 16:00 | disposition home or self-care (01) | DRG 806 ==
PROVIDERS: Admitting Provider Advanced Practice Midwife; PCP Student in an Organized Health Care Education/Training Program; Visit Provider Advanced Practice Midwife
DX: O48.0 Post-term pregnancy (principal); O99.354 Diseases of the nervous system complicating childbirth; Z37.0 Single live birth; Q78.0 Osteogenesis imperfecta; Z3A.40 40 weeks gestation of pregnancy; O36.8330 Maternal care for abnormalities of the fetal heart rate or rhythm, third trimester, not applicable or unspecified; O77.0 Labor and delivery complicated by meconium in amniotic fluid; O99.824 Streptococcus B carrier state complicating childbirth; F98.8 Other specified behavioral and emotional disorders with onset usually occurring in childhood and adolescence; O99.344 Other mental disorders complicating childbirth; O99.02 Anemia complicating childbirth; D64.9 Anemia, unspecified; G43.909 Migraine, unspecified, not intractable, without status migrainosus; F17.290 Nicotine dependence, other tobacco product, uncomplicated; O99.334 Smoking (tobacco) complicating childbirth; O75.89 Other specified complications of labor and delivery; M54.31 Sciatica, right side; E55.9 Vitamin D deficiency, unspecified; G47.00 Insomnia, unspecified; F41.8 Other specified anxiety disorders
CPT/HCPCS: 80307; 80348; 85027; 86850; 86900; 86901; J2003; J2540

== ENCOUNTER 2024-08-23 00:18 | Outpatient (CLI) | payer BC, MEDICAID, SELFPAY ==
--- NOTE | 2024-08-23 08:04 | DI.RAD_ITS ---
Exam(s) XR SCOLIOSIS T-L SPINE EXAM: XR SCOLIOSIS T-L SPINE CLINICAL HISTORY: Possible scoliosis on exam,back pain,m54.9. TECHNIQUE: 2D digital imaging was performed. COMPARISON: CR XR SCOLIOSIS T-L SPINE from 03/06/2020 FINDINGS: Five views There is no evidence of scoliosis in the thoracic and lumbar spines. Incidentally noted are bilateral pars defects at L5 level and anterolisthesis of L 5 upon S1 with kelsey roximately 1 cm anterior slippage L5 upon S1 at this level and mild disc space narrowing. Other disc spaces appear unremarkable. Bone density is normal. No osseous lesions. IMPRESSION: No scoliosis. Anterolisthesis L5 upon S1 due to bilateral pars defects at L5 level. DATA REPOSITORY: RADIATION DOSE DELIVERED:
== END 2024-08-23 00:38 ==
LOC: DI 00:18
PROVIDERS: PCP Family Medicine; Visit Provider Family Medicine
DX: M43.16 Spondylolisthesis, lumbar region (principal)
CPT/HCPCS: 72082

== ENCOUNTER 2024-10-05 17:18 | Outpatient (REF) | payer BC, MEDICAID, SELFPAY ==
[2024-10-05 17:58] LABS: Bacteria Negative HPF (Negative); C & S Indicated? C&S Done As Ordered; Crystals Negative HPF (Negative); Epithelial Cells Many HPF (Negative); Mucus Negative (Negative); Other Cells Few Yeast (Negative); RBC 0-2 HPF (0-2)
== END 2024-10-05 17:19 | disposition home or self-care (01) ==
LOC: LBN 17:18
PROVIDERS: PCP Family Medicine; Visit Provider Physician Assistant Medical
DX: R30.0 Dysuria (principal)
CPT/HCPCS: 81015; 87086; 87480; 87510; 87660

== ENCOUNTER 2024-10-31 17:02 | Emergency (ER) | payer BC, MEDICAID, SELFPAY ==
[2024-10-31 17:07] VITALS: BP 130/93; PULSE 90; RESP 16; TEMP 36.6; O2SAT 97
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
[2024-10-31 17:53] LABS: HCT 37.2 % (36.0-46.0); HGB 12.9 g/dL (11.2-15.7); MCH 31.3 pg (27.0-33.0); MCHC 34.7 % (32.0-36.0); MCV 90 fL (80-95); MPV 9.7 fL (8.0-11.0); Platelet Count 264 10^3/uL (130-400); RBC 4.12 10^6/uL (3.93-5.22); RDW 12.3 % (11.7-14.6); RDW-SD 40.0 fL; WBC 11.69 10^3/uL (4.4-10.8)
[2024-10-31 18:05] LABS: Glucose Negative (Negative)
[2024-10-31 18:07] LABS: ALT 22 U/L (14-59); AST 16 U/L (15-37); Albumin 4.0 g/dL (3.4-5.0); Alkaline Phosphatase 114 U/L (46-116); Anion Gap 12.1 mmol/L (3-11); BUN 11 mg/dL (7-18); Bilirubin, Total 0.3 mg/dL (0.2-1.0); CO2 24.9 mmol/L (21.0-32.0); Calcium 9.0 mg/dL (8.5-10.1); Chloride 104 mmol/L (98-107); Estimated GFR 124.58 (mL/min/1.73m2); Glucose 96 mg/dL (74-106); Potassium 3.7 mmol/L (3.5-5.1); Sodium 141 mmol/L (136-145); Total Protein 7.7 g/dL (6.4-8.2)
[2024-10-31 18:16] LABS: C & S Indicated? No; RBC 0-2 HPF (0-2)
[2024-10-31 18:21] LABS: Abs Immature Grans 0.00 10^3/uL (0.0-0.06); Immature Grans % 0.0 %; RBC Morphology Normal
== END 2024-10-31 19:58 | disposition home or self-care (01) ==
PROVIDERS: Emergency Provider Physician Assistant; PCP Family Medicine
DX: N93.9 Abnormal uterine and vaginal bleeding, unspecified (principal); B37.31 Acute candidiasis of vulva and vagina; Z97.5 Presence of (intrauterine) contraceptive device
CPT/HCPCS: 36415; 80053; 99283; 81003; 81015; 85025; 87480; 87510; 87660

== ENCOUNTER 2025-01-13 02:44 | Outpatient (CLI) | payer MEDICAID, SELFPAY ==
--- NOTE | 2025-01-13 07:45 | DI.US_ITS ---
Exam(s) US PELVIS TRANSVAGINAL EXAM: US PELVIS TRANSVAGINAL CLINICAL HISTORY: ovarian cyst,pelvic pain,r10.2,n83.209 TECHNIQUE: Ultrasound of the pelvis was performed both transabdominal and transvaginal. COMPARISON: US US PELVIS TRANSVAGINAL from 11/01/2024 FINDINGS: UTERUS: Nongravid and anteverted. Contains IUD in satisfactory position. Measures 7 cm length x 3.3 cm AP x 4.6 cm wide. There are no uterine fibroids. Endometrial thickness measures 2 mm. There is a small amount fluid in the endometrial canal at the fundal level CERVIX: There are no obvious nabothian cysts. RIGHT OVARY: Measures 3.1 x 1.5 x 2.9 cm Contains multiple sub cm follicular cysts, however, previously present 2 cm partially solid partially cystic finding is no longer evident LEFT OVARY: Measures 4.2 x 1.4 x 2.5 cm Contains a simple appearing cyst measuring 2.4 x 1.6 x 2.2 cm CUL-DE-SAC: No free fluid evident. IMPRESSION: 1. IUD remains in good position in the endometrial cavity. There is a small amount of fluid in the endometrial canal evident on today's study. 2. The previously present partially solid partially cystic finding in the right ovary seen on ultrasound of 11/01/2024 is no longer seen. 3. There is a dominant follicular cyst in the opposite-left ovary measuring 2.4 x 2.2 x 1.6 cm. No free fluid. DATA REPOSITORY:
== END 2025-01-13 03:04 ==
LOC: DI 02:44
PROVIDERS: PCP Family Medicine; Visit Provider Advanced Practice Midwife
DX: R10.2 Pelvic and perineal pain; N83.02 Follicular cyst of left ovary; Z97.5 Presence of (intrauterine) contraceptive device
CPT/HCPCS: 76830; 76856

== ENCOUNTER 2025-04-02 15:34 | Outpatient (REF) | payer OTHER, MEDICAID, SELFPAY ==
--- NOTE | 2025-04-02 15:10 | PAPFT_PTH ---
PATIENT: Sara Carreon LOC: [facility] U#:[id number] AGE/SX: 34/F ROOM: RE04/02/[address]: Trini Green NP : [id number] BED: DIS: 04/02/2025 SPEC #: [id number] RECD: 04/02/25 16:06 STATUS: SHADHoney REPatrizia #: [id number] SEGUNDO: 04/02/25 15:[address]: Norma HYATT,Trini DEPT: [facility] Cytology RECD BY: Niki Garcia ENTERED: 04/02/25 16:06 SP TYPE: PAPFT OTHR DR: Tl Abebe, DO Tissues: 1 - CX/ENDOCX FOR PAP SMEARS Procedures: PAP THIN PREP/UVM Screening HPV DNA PROBE Comments: [id number] (HPV 16 & 18/45)
== END 2025-04-02 15:35 | disposition home or self-care (01) ==
LOC: LBN 15:34
PROVIDERS: PCP Family Medicine; Visit Provider Nurse Practitioner Women's Health
DX: N76.0 Acute vaginitis (principal); Z12.4 Encounter for screening for malignant neoplasm of cervix
CPT/HCPCS: 88142; 87480; 87510; 87624; 87660